=== PATIENT | male | born 1985 | race Caucasian/White ===

== ENCOUNTER 2016-09-08 16:55 | Observation (INO) | payer OTHER ==
[~2016-09-08] VITALS: Ht 177.8 cm; Wt 126.9 kg
[~2016-09-08 16:55] MED LIST: ASPI325T5 PO; ASPI81TA85 PO; CLEO300C2 PO; DOXY75CA3 PO; IBUP200C PO; LISI10TA4 PO; PAME10CA PO; PERCOCET PO; PRIL40CA PO; SENO8.6T9 PO; TYLE325T5 PO; ZANTAC PO
[2016-09-08 18:03] LABS: BASO # 0.1 K/mm3 (0.0-0.2); BASO % 1.2 % (0.0-1.0); EOS # 0.2 K/mm3 (0.0-0.50); LARGE UNSTAINED CELL # 0.2 K/mm3 (0.0-0.4); LARGE UNSTAINED CELL % 2.1 % (0.0-4.0); LYMPH # 2.6 K/mm3 (1.5-4.5); LYMPH % 32.8 % (24.0-44.0); MEAN CORPUSCULAR HEMOGLOBIN 31.9 pg (27.0-33.0); MEAN CORPUSCULAR HGB CONC 36.5 g/dl (32.0-36.5); MEAN CORPUSCULAR VOLUME 87.5 fl (80.0-96.0); MONO # 0.5 K/mm3 (0.0-0.8); MONO % 6.2 % (0.0-5.0); NEUTROPHILS # 4.1 K/mm3 (1.8-7.7); NEUTROPHILS % 54.8 % (36.0-66.0); PLATELET COUNT, AUTOMATED 184 k/mm3 (150-450); RED CELL DISTRIBUTION WIDTH 12.6 % (11.5-14.5); WHITE BLOOD COUNT 7.4 K/mm3 (4.0-10.0)
[2016-09-08 18:12] LABS: INR 0.94
[2016-09-08 18:23] LABS: ANION GAP 8 MEQ/L (8-16); BLOOD UREA NITROGEN 17 MG/DL (7-18); CARBON DIOXIDE LEVEL 27 MEQ/L (21-32); CHLORIDE LEVEL 104 MEQ/L (98-107); CREATININE FOR GFR 0.97 MG/DL (0.70-1.30); GLOMERULAR FILTRATION RATE > 60.0 (>60); GLUCOSE, FASTING 87 MG/DL (70-105); POTASSIUM SERUM 3.8 MEQ/L (3.5-5.1); SODIUM LEVEL 139 MEQ/L (136-145)
--- NOTE | 2016-09-08 18:48 | REP ---
CT brain without contrast 09/08/2016. Comparison: 04/22/2015, CT, MRI MRA brain, 09/12/2014 CT brain Clinical history CVA. Noncontrast images show ventricles midline and without dilatation or displacement. Basal ganglia are symmetric and normal. Ruggiero white right junction differentiation well maintained. No intracranial hemorrhage, vascular territory infarct, mass or mass effect. No extra-axial fluid collection seen. Brainstem was unremarkable. Cerebellum is unchanged by CT. Small lacunar infarct on MRI in April 2015 is not well reproduced by CT due to deep central location spray artifact. This is in the inferomedial left cerebellum on MRI. Regardless there is no posterior fossa hemorrhage or new finding. Basal cisterns intact. Mastoids sinuses, skull base and calvarium intact. Impression: 1. No evidence of an acute infarct, hemorrhage, mass, mass effect or edema , calvarium, mastoids and the visualized sinuses are clear. 2. The known small lacunar infarct in the cerebellum by MRI is not readily visible by CT. New in the cerebellum today. Signed by Valeriy Blount MD 09/08/2016 10:28 P
[2016-09-08] MEDS ORDERED: ISOVUE-370 76% 100ML VIAL (Q9967) As Ordered ONE (19:13)
[2016-09-08] MEDS ORDERED: LABETALOL HCL 100 MG/20 ML VIAL IV STA ×2 (19:41→21:36)
--- NOTE | 2016-09-08 21:20 | REPUSA ---
HISTORY: NECK PAIN R/O CAROTID DISSECTION TECHNIQUE: Multiple thin section helically-acquired, axially-displayed computed tomographic images of the neck were obtained from the aortic arch through the skull base following iodinated contrast infu lenora intravenously. 2D and 3D reconstructions were performed according to standard protocol at the re quest of the referring physician. Stenoses were measured according to NASCET criteria. Source images are reviewed. FINDINGS: There is normal anatomy. No flow restrictive stenoses. There is no evidence of carotid dissection. IMPRESSION: There is no evidence of carotid dissection. Thank you for your kind referral of this patient
[2016-09-08] MEDS ORDERED: LABETALOL 100 MG TAB PO ONE (21:45)
[2016-09-08] MEDS ORDERED: ACETAMINOPHEN TAB 650MG DOSE (2X325MG) PO PRN (22:45)
[2016-09-08] MEDS ORDERED: ONDANSETRON 4MG/2ML VIAL (J2405) IV PRN (22:45)
[2016-09-09] VITALS (7 sets, daily range): BP systolic 128–144; BP diastolic 81–96
--- NOTE | 2016-09-09 01:00 | REPUSA ---
CLINICAL HISTORY: Facial paresthesia. TECHNIQUE: Three dimensional qoni-gd-hoscni angiography is performed of the [place]. The romero dy was performed without IV contrast agent. FINDINGS: The supraclinoid portions of the internal carotid arteries are of normal shape. The normal bifurcation is seen. The middle cerebral arteries are unremarkable in appearance. The posterior circu lation is visualized and shows no evidence of occlusion or aneurysm formation. The basilar tip is see n and shows no aneurysm formation. There is no evidence of beading to suggest vasculitis. IMPRESSION: MRA of the [place] is within normal limits. Thank you for your kind referral of this patient.
--- NOTE | 2016-09-09 01:00 | REPUSA ---
CLINICAL HISTORY: History of facial paresthesia. TECHNIQUE: MRI of the brain was performed without administration of intravenous contrast material. T1 spine echo, T2 fast spin echo and FLAIR sequences were obtained in sagittal, axial and coronal plane s. FINDINGS: The sella and parasellar regions are unremarkable in appearance. The corpus callosum and cerebellar t onsils are of normal configuration and position. There are no intra or extra-axial collections. There is no mass effect or midline shift. There is no evidence of hematoma formation. There is no hydrocep halus. The brain stem shows no mass effects, infarcts or hemorrhage. There are no cerebellopontine tumors. T he acoustic nerves are symmetrical. No cerebellar intra-axial pathology delineated. The fourth ventri anaya and aqueduct are normal. No abnormalities of the optic nerves are identified. No dural or subdura l masses or collections are detected. The visualized arterial structures demonstrate normal appearing flow voids. The VII and VIII nerve bu ndles are visualized and are unremarkable in appearance. There are no suspicious signal abnormalities within the infra or supratentorial space. Minimal chronic mucosal inflammatory changes in the maxillary sinuses and ethmoid air cells. IMPRESSION: Minimal chronic mucosal inflammatory changes in the maxillary sinuses and ethmoid air cells. Normal MRI of the brain. No acute intracranial pathology. Thank you for your kind referral of this patient.
[2016-09-09] MEDS: HEPARIN SOD (PORCINE) 5000 UNITS/ML VIAL SC SCH ×2 (05:23→13:55)
[2016-09-09] MEDS: SLF 3 ML SYR IV SCH ×2 (05:44→13:54)
[2016-09-09] MEDS ORDERED: SLF 3 ML SYR IV PRN (05:45)
[2016-09-09 05:59] LABS: MEAN CORPUSCULAR HEMOGLOBIN 32.2 pg (27.0-33.0); MEAN CORPUSCULAR HGB CONC 36.2 g/dl (32.0-36.5); MEAN CORPUSCULAR VOLUME 88.8 fl (80.0-96.0); RED CELL DISTRIBUTION WIDTH 12.3 % (11.5-14.5)
[2016-09-09 06:15] LABS: ANION GAP 12 MEQ/L (8-16); BLOOD UREA NITROGEN 14 MG/DL (7-18); CALCIUM LEVEL 8.8 MG/DL (8.5-10.1); CARBON DIOXIDE LEVEL 23 MEQ/L (21-32); CHLORIDE LEVEL 107 MEQ/L (98-107); CREATININE FOR GFR 0.86 MG/DL (0.70-1.30); GLOMERULAR FILTRATION RATE > 60.0 (>60); GLUCOSE, FASTING 98 MG/DL (70-105); SODIUM LEVEL 142 MEQ/L (136-145)
[2016-09-09 08:35] LABS: CHOLESTEROL LEVEL 188 MG/DL (<200); TRIGLYCERIDES LEVEL 372 MG/DL (<150)
[2016-09-09] MEDS ORDERED: amLODIPine 5 MG TAB PO SCH (09:00)
[2016-09-09] MEDS ORDERED: DOCUSATE SODIUM 100 MG CAP PO SCH (09:00)
[2016-09-09] MEDS ORDERED: ASPIRIN 81 MG ENTERIC TAB PO SCH (09:00)
[2016-09-09] MEDS ORDERED: LISINOPRIL 10 MG TAB PO SCH (09:00)
--- NOTE | 2016-09-09 09:36 | REP ---
PA AND LATERAL CHEST: 09/08/2016. Comparison: portable chest 04/22/2015, 10/02/2014. Clinical history: Chest pain. Findings: Two-view show the lung cunha well inflated. There is no infiltrate, effusion, atelectasis or mass. Heart, mediastinal, and hilar contours grossly intact. Aorta normal for age. Airway intact. Bony thorax shows no compression deformity. Impression: 1. No acute cardiopulmonary change. Signed by Valeriy Blount MD 09/09/2016 08:06 A
--- NOTE | 2016-09-09 09:59 | ECGEPIP ---
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
[2016-09-09] MEDS ORDERED: LISI10TA4 PO (17:22)
[2016-09-09] MEDS ORDERED: AMLO5TAB2 PO (17:22)
[2016-09-09] MEDS ORDERED: MAPA325T3 PO (17:22)
--- NOTE | 2016-09-09 22:20 | DSES ---
DATE OF ADMISSION: 09/08/2016 DATE OF DISCHARGE: 09/09/2016 PRIMARY CARE PROVIDER: [facility] ([place]. NEUROLOGIST: Dr. Gordon. CONSULTANTS: Neurologist, Dr. Muniz. PROCEDURES: None. COMPLICATIONS: None. DISCHARGE DIAGNOSES: 1. Acute left neck pain with left facial numbness. 2. History of small acute left inferior cerebellar infarction in March,. 3. History of hypertension. HOSPITALIZATION COURSE: The patient is a 31-year-old male who presented to [facility] on 09/08/2016, with acute onset of left neck pain with left facial numbness. The patient had similar symptoms when he had a cerebellar infarction in 2013; therefore, the patient came to [facility] for further evaluation. After the patient arrived in the emergency room, the patient was found to have elevated blood pressure. Active blood pressure management was attempted in the emergency room. Per patient, the patient's symptoms showed continued improvement with better control of the blood pressure, and the patient was monitored on telemetry. MRI and MRA were performed which also came back negative, and neurology has been consulted assisting in patient's care. The patient was evaluated on 09/09/2016. The patient was determined to not have an acute transient ischemic attack (TIA)/stroke, and the patient was determined stable for discharge with recommendation to followup with primary care provider in 1-2 weeks, and the patient is recommended to followup with Dr. Gordon, his primary neurologist, in 2-3 weeks. If patient continues to have a recurrence of the neck pain, the patient can use [id number] pain medication for pain control. OBJECTIVE: VITAL SIGNS: Temperature is 98, pulse 70, respirations 14, blood pressure 136/92, pulse oximetry 97% on room air. LABORATORY DATA: WBC is six, hemoglobin 15.6, hematocrit 43.2, platelet count 153. Sodium 142, potassium 4.0, chloride 107, carbon dioxide 23, BUN 14, creatinine 0.86, GFR greater than 60, fasting glucose 96, calcium 8.8. Triglycerides 372, total cholesterol 188, LDL 78.6, HDL 35. PT 12.7, INR 0.94. IMAGING: CT of the head without contrast on 09/08/2016, showed no evidence of acute infarct, hemorrhage, mass, mass effect or edema. CT angiogram of the neck on 09/08/2016, showed no evidence of carotid dissection. Chest x-ray on 09/08/2016, showed acute cardiopulmonary changes. MRA of the brain without contrast on 09/08/2016, showed MRA of the [place] is within normal limits. MRI of the brain without contrast on 09/08/2016, showed minimal chronic mucosal inflammatory changes in the maxillary sinus and ethmoid air cells. Normal MRI of the brain. No acute intracranial pathology. DISCHARGE MEDICATIONS: - Tylenol 650 mg by mouth every four hours as needed - amlodipine 5 mg by mouth daily - lisinopril 10 mg by mouth daily - aspirin 81 mg by mouth daily DISCHARGE INSTRUCTIONS: Discontinue lines. Discharge home. Activity as tolerated. Low-salt diet as tolerated. The patient is [facility]. The patient is recommended to followup with Dr. Gordon, his primary neurologist, in 2-3 weeks. DISCHARGE CONDITION: Stable. DISCHARGE TIME: Greater than 30 minutes.
--- NOTE | 2016-09-10 10:33 | HPE ---
DATE OF ADMISSION: 09/09/2016 PRIMARY CARE PROVIDER: [facility] ([place]) NEUROLOGIST: Dr. Gordon which he saw three years CODE STATUS: Full code. CHIEF COMPLAINT: Left facial numbness, weakness, left neck pain and shoulder pain which started earlier today. HISTORY OF PRESENT ILLNESS: Mr. Meredith is a 31-year-old male patient at [facility] with known history of hypertension and prior stroke in 2013. 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 He had been doing well without any problems up until earlier this afternoon when he had sudden onset of left shoulder, neck pain, facial numbness and did end up with a headache' he calls a "migraine" although he did not have any photophobia or nausea or vomiting. He did take Advil, which did help out with the headache, neck pain did seem to improve but he continues to have trouble with some left-sided facial numbness. He was unclear about having experienced any chest pain. He said he did have some discomfort or tightness in the chest. No history of anxiety. He did not have any substernal chest pain. No paroxysmal nocturnal dyspnea (PND) or orthopnea, no palpitations and denies lower extremity edema. He informs me that he had been previously on blood pressure medication, but was unable to recall the medication or the dose. His blood pressure was elevated according to the emergency room (ER) physician. He did receive a one-time dose of metoprolol IV which did seem to help his blood pressure. He had a CT scan that was unremarkable. However, given his prior history of circumstance the emergency department (ED) physician did contact me for a overnight observation and for the patient to have an Magnetic Resonance Imaging (MRI) tonight and to be seen by neurology tomorrow morning which I felt that this was reasonable. PAST MEDICAL HISTORY INCLUDES: 1. Prior cerebrovascular accident (CVA) stroke in 2013. 2. Hypertension. PAST SURGICAL HISTORY: Unremarkable. PAST SURGICAL HISTORY: Appendectomy. FAMILY HISTORY: Noncontributory. SOCIAL HISTORY: The patient said he quit smoking about 14 years ago after being a half-pack a day smoker for 3 years. Denies alcohol use. No illicit drug use. No recent travel or sick contacts. CURRENT MEDICATIONS: We have only be able to confirm aspirin 81 mg daily ALLERGIES: To TAPE. REVIEW OF SYSTEMS: CONSTITUTIONAL: As outlined above in history of present illness with some left facial numbness, neck pain, headache, chest discomfort. All these symptoms seem to have resolved, except for the facial numbness. HEENT: He did previously have a headache which is resolved. He did state that he felt that he had some blurred vision temporarily that has resolved. He denies any difficulty with speech or swallow. PULMONARY: He denies productive sputum, cough or hemoptysis. CARDIOVASCULAR: He denies currently any substernal chest pain. No paroxysmal nocturnal dyspnea (PND) or orthopnea. No palpitations. No lower extremity edema. GASTROINTESTINAL (GI): No nausea, vomiting, diarrhea. Appetite is good. He denies constipation. He denies any hematochezia or melena. GENITOURINARY (): No dysuria, frequency or hematuria. MUSCULOSKELETAL: No bone loss or joint pain swelling, erythema. NEURO: No lateralizing symptoms other than some left facial numbness. He did not have any amaurosis fugax. stated that he felt that he had a migraine but he did not describe having photophobia. No nausea or vomiting. ENDOCRINE: Negative for diabetes. No thyroid disorder. LYMPHATICS: No lumps, bumps, swelling in neck or axilla or groin. No night sweats. No weight loss. HEMATOLOGY: No bleeding or bruising disorder. No venous thromboembolism. ONCOLOGY: No history of cancer. PSYCHIATRIC: History of depression or anxiety disorder. REVIEW OF SYSTEMS: 10-point review of systems complete pertinent positives are listed. PHYSICAL EXAMINATION: Temperature is 96.6, pulse 89, respiratory rate is 18 and unlabored, blood pressure (BP) 149/95 initially his systolic blood pressure was 176 and again he was given a one-time dose of IV metoprolol. HEENT: Unremarkable. Throat is clear. NECK: Supple. LUNGS: Clear. HEART: Regular rate and rhythm. ABDOMEN: Soft. EXTREMITIES: No edema or calf tenderness. NEURO: Computerized Mill Recorder strength is equal bilaterally, does not demonstrate any focal deficits. Cranial nerves II-XII grossly intact. No facial droop noted. Extraocular movement is intact. LABORATORY DATA AND DIAGNOSTICS: White count is 7.4, hemoglobin 16.0, hemoglobin, platelets are 184,000. Sodium is 139, potassium 3.8, chloride 104, bicarbonate 27, anion gap 8, BUN 17, creatinine 0.97, glucose is 87, INR 0.94. PT is 12.7, PTT is 29.7. Reviewing the chart in 2013 when he had his previous strokes, his JAKE, anticardiolipin tests were all negative. Lyme studies were negative at that time and prothrombin mutation genes were unremarkable. Echocardiogram done 03/27/2013. No detectable intracardiac source of embolic material, normal left ventricular (LV) size, wall thickness and wall motion. Normal left atrial size and Doppler assessment of left ventricular (LV) diastolic function. Normal right heart chambers and single Doppler sign of mild pulmonary hypertension noted on. All-in-all this was unremarkable. Chest x-ray this evening, PA and lateral shows no acute cardiopulmonary findings. CT angiogram of the cervical spine, no evidence of carotid dissection. Head CT shows no evidence of acute infarct, mass, hemorrhage or mass effect. No edema. Did have known small lacunar infarct in the cerebellum previously seen on Magnetic Resonance Imaging (MRI) not readily visible on CT scan, but no new cerebellar pathology noted. MRI is pending at this time. 12-lead electrocardiogram (EKG): Normal sinus rhythm. No acute ST-T wave abnormality, ventricular rate at 95 beats per minute. IMPRESSION: Mr. Meredith is a pleasant 31-year-old male who unfortunately has had some prior history of cerebrovascular accident (CVA) stroke in 2013. He does present this evening with having left facial paresthesias which has not resolved, previously did have left cervical, neck and shoulder pain with headaches; all of which has resolved Systolic blood pressure was elevated and receive a one-time dose of metoprolol and will need admitting observation overnight on telemetry and have neurology see him in the morning. PROBLEM LIST: 1. Left facial paresthesias. 2. Left cervical neck pain. 3. Headache which has resolved. 4. Hypertension. 5. Prior history of cerebrovascular accident (CVA) in 2014. PLAN: Will admit him PCU on telemetry overnight, check Magnetic Resonance Imaging (MRI), consult Dr. Muniz in the morning. Will hold off on any further work up until Dr. Muniz has a chance to take a look at him since his symptomatology does appear to be improving. Will have physical therapy, occupational therapy see him. He is to continue on his home medications including aspirin. I did receive an updated medication list which includes lisinopril 10 mg daily which will continue on that with Norvasc 5 mg with hold parameters. Deep vein thrombosis (DVT) prophylaxis with subcutaneous heparin. DISPOSITION: Anticipate that he will be ready for home discharge in less than 24 hours as long as his workup remain.
== END 2016-09-09 23:14 | disposition home or self-care (01) ==
LOC: M ED 16:55 → INTOOBSV 22:40 → M ED INP 22:40 → M PCU 09-09 14:31
PROVIDERS: ADMIT Hospitalist; ATTEND Internal Medicine
DX: M54.2 Cervicalgia (principal); R20.8 Other disturbances of skin sensation; I10 Essential (primary) hypertension; Z86.73 Personal history of transient ischemic attack (TIA), and cerebral infarction without residual deficits; Z79.82 Long term (current) use of aspirin; Z79.899 Other long term (current) drug therapy; Z87.891 Personal history of nicotine dependence
CPT/HCPCS: 36415; 70450; 70498; 70544; 70551; 71020; 80048; 80061; 82550; 82553; 84484; 85025; 85027; 85610; 85730; 86850; 86900; 86901; 93005; 93041; 94760; 96372; 96374; 96376; 99285; G0378; Q9967

== ENCOUNTER 2017-12-14 14:55 | Emergency (ER) | payer OTHER ==
[2017-12-14] MEDS: ASPIRIN 81 MG CHEW TABLET PO (16:21)
[2017-12-14] MEDS: NITROGLYCERIN 0.4 MG SUBL TABLET SL (16:22)
[2017-12-14 16:32] LABS: BASO # 0.1 10^3/uL (0.0-0.2); BASO % 0.7 % (0.0-1.0); EOS # 0.3 10^3/uL (0.0-0.50); EOS % 3.4 % (0.0-3.0); HEMATOCRIT 46.9 % (42.0-52.0); HEMOGLOBIN 16.6 g/dl (13.5-17.5); IMMATURE GRANULOCYTE % 0.5 % (0-3.0); LYMPH # 2.2 10^3/uL (1.5-4.5); LYMPH % 26.1 % (24.0-44.0); MEAN CORPUSCULAR HGB CONC 35.4 g/dl (32.0-36.5); MEAN CORPUSCULAR VOLUME 90.5 fl (80.0-96.0); MONO # 0.7 10^3/uL (0.0-0.8); MONO % 8.3 % (0.0-5.0); NEUTROPHILS # 5.1 10^3/uL (1.8-7.7); PLATELET COUNT, AUTOMATED 181 10^3/uL (150-450); RED BLOOD COUNT 5.18 10^6/uL (4.30-6.10); RED CELL DISTRIBUTION WIDTH 12.4 % (11.5-14.5); WHITE BLOOD COUNT 8.3 10^3/uL (4.0-10.0)
[2017-12-14 16:39] LABS: ALBUMIN 3.7 GM/DL (3.2-5.2); ALBUMIN/GLOBULIN RATIO 0.97 (1.00-1.93); ALKALINE PHOSPHATASE 108 U/L (45-117); ALT/SGPT 89 U/L (12-78); ANION GAP 8 MEQ/L (8-16); AST/SGOT 38 U/L (7-37); BILIRUBIN,DIRECT 0.2 MG/DL (0.0-0.2); BILIRUBIN,TOTAL 0.6 MG/DL (0.2-1.0); BLOOD UREA NITROGEN 13 MG/DL (7-18); CALCIUM LEVEL 8.6 MG/DL (8.5-10.1); CARBON DIOXIDE LEVEL 25 MEQ/L (21-32); CHLORIDE LEVEL 106 MEQ/L (98-107); CPK CREATINE PHOSPHOKINASE 346 U/L (39-308); CREATININE FOR GFR 0.85 MG/DL (0.70-1.30); GLOMERULAR FILTRATION RATE > 60.0 (>60); GLUCOSE, FASTING 84 MG/DL (70-100); MB/CK RELATIVE INDEX 0.98 (< OR =4); POTASSIUM SERUM 3.9 MEQ/L (3.5-5.1); SODIUM LEVEL 139 MEQ/L (136-145); TOTAL PROTEIN 7.5 GM/DL (6.4-8.2); TROPONIN I < 0.02 NG/ML (< 0.10)
[2017-12-14] MEDS: LABETALOL HCL 100 MG/20 ML VIAL IV (16:56)
[2017-12-14] MEDS: NS 1,000 ML IV ×2 (17:00→17:19)
[2017-12-14] MEDS: KETOROLAC 30 MG/ML VIAL (J1885) IV (17:12)
[2017-12-14] MEDS: diphenhydrAMINE INJ 50MG/ML VIAL (J1200) IV (17:12)
[2017-12-14] MEDS: METOCLOPRAMIDE INJ 10MG/2ML VIAL (J2765) IV (17:12)
[2017-12-14] MEDS: ACETAMINOPHEN 325 MG TAB PO (17:13)
== END 2017-12-14 18:47 | disposition home or self-care (01) ==
LOC: M ED 14:55
DX: I10 Essential (primary) hypertension (principal); R51 Headache; J32.9 Chronic sinusitis, unspecified; Z87.891 Personal history of nicotine dependence; Z91.048 Other nonmedicinal substance allergy status; Z79.899 Other long term (current) drug therapy; Z79.82 Long term (current) use of aspirin
CPT/HCPCS: J1200

== ENCOUNTER 2018-07-02 15:36 | Emergency (ER) | payer OTHER ==
[~2018-07-02] VITALS: Ht 177.8 cm; Wt 113.6 kg
[~2018-07-02 15:36] MED LIST changes: +AMLO5TAB6 PO; +MAPA325T3 PO; +METO50TA7 PO; +OXYC1TAB23 PO; -PERCOCET PO
[2018-07-02] MEDS ORDERED: KETOROLAC 30 MG/ML VIAL (J1885) IV ONE (19:30)
--- NOTE | 2018-07-02 19:41 | REP ---
Clinical: Possible stroke . Comparison: 09/08/2016, 12/14/2017 . Findings: The ventricles, sulci, and cisterns are normal in position and appearance. Ruggiero-white differentiation is maintained. No acute intracranial hemorrhage, mass/mass effect, pathology or trauma/injury. No evidence for acute infarction. No extra-axial fluid collection. Calvarium is intact. Paranasal sinuses and mastoid air cells are clear. Impression: Normal noncontrast head CT. No evidence for acute intracranial pathology or trauma/injury. Electronically Signed by Venkat Mantilla MD 07/02/2018 07:32 P
--- NOTE | 2018-07-02 20:09 | REP ---
Clinical: Acute chest pain . Comparison: 12/14/2017 . Technique: PA and lateral. Findings: The mediastinum and cardiac silhouette are normal. The lung cunha are clear and without acute consolidation, effusion, or pneumothorax. The skeletal structures are intact and normal. Impression: 1. No acute cardiopulmonary process. Electronically Signed by Venkat Mantilla MD 07/02/2018 08:00 P
[2018-07-02 20:11] LABS: BASO # 0.1 10^3/uL (0.0-0.2); BASO % 0.6 % (0.0-1.0); EOS # 0.2 10^3/uL (0.0-0.50); EOS % 2.2 % (0.0-3.0); HEMATOCRIT 48.2 % (42.0-52.0); LYMPH # 2.4 10^3/uL (1.5-4.5); LYMPH % 29.4 % (24.0-44.0); MEAN CORPUSCULAR HEMOGLOBIN 31.1 pg (27.0-33.0); MEAN CORPUSCULAR HGB CONC 35.3 g/dl (32.0-36.5); MEAN CORPUSCULAR VOLUME 88.3 fl (80.0-96.0); MONO # 0.5 10^3/uL (0.0-0.8); MONO % 6.4 % (0.0-5.0); NEUTROPHILS # 4.9 10^3/uL (1.8-7.7); NEUTROPHILS % 60.9 % (36.0-66.0); PLATELET COUNT, AUTOMATED 201 10^3/uL (150-450); RED BLOOD COUNT 5.46 10^6/uL (4.30-6.10); WHITE BLOOD COUNT 8.1 10^3/uL (4.0-10.0)
[2018-07-02 20:22] LABS: PARTIAL THROMBOPLASTIN TIME 34.7 SECONDS (25.4-37.6)
[2018-07-02 20:26] LABS: PROTHROMBIN TIME 13.3 SECONDS (12.1-14.4)
[2018-07-02 20:34] LABS: ALBUMIN 4.2 GM/DL (3.2-5.2); ALT/SGPT 93 U/L (12-78); BILIRUBIN,DIRECT 0.2 MG/DL (0.0-0.2); BILIRUBIN,TOTAL 0.7 MG/DL (0.2-1.0); BLOOD UREA NITROGEN 16 MG/DL (7-18); C REACTIVE PROTEIN QUANTITATIV 0.84 MG/DL (0.00-0.30); CALCIUM LEVEL 8.9 MG/DL (8.5-10.1); CARBON DIOXIDE LEVEL 26 MEQ/L (21-32); CHLORIDE LEVEL 104 MEQ/L (98-107); CPK CREATINE PHOSPHOKINASE 415 U/L (39-308); CREATININE FOR GFR 0.98 MG/DL (0.70-1.30); GLOMERULAR FILTRATION RATE > 60.0 (>60); GLUCOSE, FASTING 92 MG/DL (70-100); LIPASE 208 U/L (73-393); MB/CK RELATIVE INDEX 0.96 (< OR =4); NT-PRO BNP 35 PG/ML (<125); POTASSIUM SERUM 3.9 MEQ/L (3.5-5.1); SODIUM LEVEL 138 MEQ/L (136-145); TOTAL PROTEIN 8.4 GM/DL (6.4-8.2); TROPONIN I < 0.02 NG/ML (< 0.10)
[2018-07-02] MEDS ORDERED: NS 1,000 ML IV ONE (21:00)
--- NOTE | 2018-07-02 21:11 | ECGEPIP ---
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 Order Number: [id number] Reading MD: Vanesa Chew Measurements Intervals [place] Rate: 94 P: 48 AK: 142 QRS: QRSD: 113 T: QT: 348 QTc: 437 Interpretive Statements SINUS RHYTHM MODERATE INTRAVENTRICULAR CONDUCTION DELAY MODERATE VOLTAGE CRITERIA FOR LVH, CONSIDER NORMAL VARIANT NONSPECIFIC T-WAVE ABNORMALITY SIMILAR 12/14/17 Electronically Signed on 07-02-2018 21:11:14 EDT by Vanesa Chew
[2018-07-02 21:13] LABS: ERYTHROCYTE SEDIMENTATION RATE 9 mm/hr (0-15)
[2018-07-02] MEDS ORDERED: ISOVUE-370 76% 100ML VIAL (Q9967) As Ordered ONE (23:18)
--- NOTE | 2018-07-03 00:13 | REPVR ---
EXAM: CT Angiography Chest With Contrast EXAM DATE/TIME: 07/02/2018 10:53 PM CLINICAL HISTORY: 33 years old, male; Pain and signs and symptoms; Shortness of breath; Chest pain; Type not specified; Additional info: Cp/sob TECHNIQUE: Imaging protocol: Axial computed tomographic angiography images of the chest with intravenous contrast using CT angiography protocol. Coronal and sagittal reformatted images were created and reviewed. 3D rendering: MIP reconstructed images were created and reviewed. Radiation optimization: All CT scans at this facility use at least one of these dose optimization techniques: automated exposure control; mA and/or kV adjustment per patient size (includes targeted exams where dose is matched to clinical indication); or iterative reconstruction. Contrast material: ISO; Contrast volume: 75 ml; Contrast route: AC; COMPARISON: CR Chest, 2 view PA, Lat 07/02/2018 7:34 PM FINDINGS: Pulmonary arteries: There are no pulmonary emboli. Aorta: Fusiform dilatation of the ascending thoracic aorta measures 3.8 cm maximally. There is no aortic dissection or aneurysm. Lungs: Bilateral geographic lower lobe groundglass opacities likely represent atelectasis. Pleural space: Normal. No pneumothorax. No pleural effusion. Heart: Normal. No cardiomegaly. No pericardial effusion. Lymph nodes: Multiple small mediastinal lymph nodes likely postinflammatory. Bones/joints: Unremarkable. No acute fracture. Soft tissues: Unremarkable. IMPRESSION: 1. Bilateral geographic lower lobe groundglass opacities likely represent atelectasis. 2. Fusiform dilatation of the ascending thoracic aorta measures 3.8 cm maximally. 3. There is no aortic dissection or aneurysm. 4. There are no pulmonary emboli. Electronically signed by: William Garnica On 07/03/2018 00:13:16 AM
[2018-07-03 00:29] VITALS: BP 160/78
[2018-07-03] MEDS ORDERED: AZIT-10 PO (00:36)
[2018-07-03] MEDS ORDERED: PRED20TA PO (00:36)
--- NOTE | 2018-07-03 18:15 | ED PDOC ---
Post-Departure Follow-Up dr daly faxed formal report of cta chest for fu Amrita Malave MD July 03, 2018 18:15
== END 2018-07-03 00:48 | disposition home or self-care (01) ==
LOC: M ED 15:36
DX: I71.4 Abdominal aortic aneurysm, without rupture (principal); J40 Bronchitis, not specified as acute or chronic; I10 Essential (primary) hypertension; J45.909 Unspecified asthma, uncomplicated; K21.9 Gastro-esophageal reflux disease without esophagitis; E66.9 Obesity, unspecified; Z79.899 Other long term (current) drug therapy; Z79.82 Long term (current) use of aspirin; Z86.73 Personal history of transient ischemic attack (TIA), and cerebral infarction without residual deficits
CPT/HCPCS: 36415; 70450; 71046; 71275; 80048; 80076; 82550; 82553; 83690; 83880; 84484; 85025; 85610; 85652; 85730; 86140; 93005; 96361; 96374; 99284; J1885; Q9967

== ENCOUNTER 2019-02-06 02:33 | Emergency (ER) | payer OTHER ==
[~2019-02-06] VITALS: Ht 177.8 cm; Wt 138.9 kg
[~2019-02-06 02:33] MED LIST changes: +AZIT-10 PO; +PRED20TA PO
[2019-02-06 02:34] VITALS: BP 175/117
[2019-02-06 03:24] LABS: INFLUENZA A AMPLIFICATION NEGATIVE (NEGATIVE); INFLUENZA B AMPLIFICATION NEGATIVE (NEGATIVE)
[2019-02-06] MEDS ORDERED: PRED20TA PO (03:49)
[2019-02-06] MEDS ORDERED: TESS100C PO (03:49)
[2019-02-06] MEDS ORDERED: ALBUTEROL 90 MCG/ACT 8GM HFA INHALER INH ONE (04:00)
[2019-02-06] MEDS ORDERED: BENZONATATE 100 MG CAP PO ONE (04:00)
[2019-02-06] MEDS ORDERED: predniSONE 20 MG TAB PO ONE (04:00)
--- NOTE | 2019-02-06 07:07 | REP ---
Clinical: Cough . Comparison: 07/02/2018 . Technique: PA and lateral. Findings: The mediastinum and cardiac silhouette are normal. The lung cunha are clear and without acute consolidation, effusion, or pneumothorax. The skeletal structures are intact and normal. Impression: 1. No acute cardiopulmonary process. Electronically Signed by Venkat Mantilla MD 02/06/2019 06:58 A
== END 2019-02-06 04:08 | disposition home or self-care (01) ==
LOC: M ED 02:33
DX: J20.9 Acute bronchitis, unspecified (principal); B34.9 Viral infection, unspecified; I10 Essential (primary) hypertension; I51.9 Heart disease, unspecified; Z86.73 Personal history of transient ischemic attack (TIA), and cerebral infarction without residual deficits; Z82.49 Family history of ischemic heart disease and other diseases of the circulatory system; Z79.82 Long term (current) use of aspirin; Z79.899 Other long term (current) drug therapy; Z91.89 Other specified personal risk factors, not elsewhere classified

== ENCOUNTER → 2019-04-05 | Outpatient (REF) | payer OTHER ==
[~2019-04-05] MED LIST changes: +TESS100C PO
[2019-04-05 22:39] LABS: INFLUENZA A AMPLIFICATION NEGATIVE (NEGATIVE); INFLUENZA B AMPLIFICATION POSITIVE (NEGATIVE)
== END ==
LOC: M LAB REF 11:55
PROVIDERS: ATTEND Physician Assistant
DX: J11.1 Influenza due to unidentified influenza virus with other respiratory manifestations (principal)

== ENCOUNTER 2019-04-19 17:32 | Emergency (ER) | payer OTHER ==
[~2019-04-19] VITALS: Ht 177.8 cm; Wt 139.2 kg
[2019-04-19] MEDS ORDERED: LISI-538 PO (17:39)
[2019-04-19] MEDS ORDERED: AMOX875T PO (17:41)
[2019-04-19] MEDS ORDERED: ACETAMINOPHEN 325 MG TAB PO ONE (19:00)
[2019-04-19] MEDS ORDERED: lisinopriL 10 MG TAB PO ONE (19:00)
[2019-04-19 19:24] VITALS: BP 159/98
[2019-04-19 19:49] LABS: BASO # 0.1 10^3/uL (0.0-0.2); BASO % 0.9 % (0.0-1.0); EOS # 0.3 10^3/uL (0.0-0.5); HEMATOCRIT 47.3 % (42.0-52.0); HEMOGLOBIN 16.6 g/dl (13.5-17.5); LYMPH # 2.6 10^3/uL (1.5-5.0); LYMPH % 30.4 % (24.0-44.0); MEAN CORPUSCULAR HEMOGLOBIN 31.1 pg (27.0-33.0); MEAN CORPUSCULAR HGB CONC 35.1 g/dl (32.0-36.5); MEAN CORPUSCULAR VOLUME 88.6 fl (80.0-96.0); MONO # 0.6 10^3/uL (0.0-0.8); MONO % 7.5 % (0.0-5.0); NEUTROPHILS # 4.9 10^3/uL (1.5-8.5); NEUTROPHILS % 57.6 % (36.0-66.0); PLATELET COUNT, AUTOMATED 225 10^3/uL (150-450); RED BLOOD COUNT 5.34 10^6/uL (4.30-6.10); WHITE BLOOD COUNT 8.5 10^3/uL (4.0-10.0)
[2019-04-19 20:38] LABS: ALBUMIN 3.8 GM/DL (3.2-5.2); ALT/SGPT 73 U/L (12-78); BILIRUBIN,DIRECT 0.2 MG/DL (0.0-0.2); BILIRUBIN,TOTAL 0.6 MG/DL (0.2-1.0); BLOOD UREA NITROGEN 16 MG/DL (7-18); CARBON DIOXIDE LEVEL 25 MEQ/L (21-32); CHLORIDE LEVEL 106 MEQ/L (98-107); CK-MB VALUE MASS < 1.0 NG/ML (<3.6); CPK CREATINE PHOSPHOKINASE 207 U/L (39-308); CREATININE FOR GFR 0.97 MG/DL (0.70-1.30); GLOMERULAR FILTRATION RATE > 60.0 (>60); GLUCOSE, FASTING 76 MG/DL (70-100); LIPASE 174 U/L (73-393); MB/CK RELATIVE INDEX 0.48 (< OR =4); SODIUM LEVEL 138 MEQ/L (136-145); TOTAL PROTEIN 7.5 GM/DL (6.4-8.2); TROPONIN I < 0.02 NG/ML (< 0.10)
[2019-04-19 21:15] LABS: INFLUENZA A AMPLIFICATION NEGATIVE (NEGATIVE); INFLUENZA B AMPLIFICATION NEGATIVE (NEGATIVE)
--- NOTE | 2019-04-19 21:48 | ECGEPIP ---
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
[2019-04-19] MEDS ORDERED: ISOVUE-370 76% 100ML VIAL (Q9967) As Ordered ONE (22:24)
--- NOTE | 2019-04-19 23:16 | REPVR ---
PROCEDURE INFORMATION: Exam: CT Angiography Chest With Contrast Exam date and time: 04/19/2019 10:29 PM Age: 34 years old Clinical indication: Abnormal findings; Abnormal diagnostic tests; Elevated d-dimer; Shortness of breath; Additional info: SOB; Elevated d dimer; R/O pe TECHNIQUE: Imaging protocol: Computed tomographic angiography of the chest with intravenous contrast. 3D rendering: MIP and/or 3D reconstructed images were created by the technologist. Radiation optimization: All CT scans at this facility use at least one of these dose optimization techniques: automated exposure control; mA and/or kV adjustment per patient size (includes targeted exams where dose is matched to clinical indication); or iterative reconstruction. Contrast material: ISOVUE 370; Contrast volume: 75 ml; Contrast route: IV; COMPARISON: CT ANGIO CHEST 07/02/2018 11:14 PM FINDINGS: Pulmonary arteries: There is opacification of the pulmonary arteries with no evidence of pulmonary embolus. Aorta: There is mild ectasia of the ascending aorta unchanged. Thyroid: Normal thyroid. Lungs: There is mild to moderate hazy and patchy interstitial density throughout the lungs and new since the 07/02/2018. This could be patchy interstitial pneumonitis. Pleural space: There is a 1 cm oval pleural base nodule left apical portion of the lung and new since the examination of 07/02/2018. There is no evidence of pleural effusion. There is no evidence of pneumothorax. Heart: There is moderate cardiomegaly. Liver: There is moderate fatty infiltration of the liver. Lymph nodes: Unremarkable. No enlarged lymph nodes. Bones/joints: There is no evidence of bony abnormality. Soft tissues: Unremarkable. IMPRESSION: 1. There is moderate cardiomegaly. 2. There is a 1 cm nodule that is pleural based at the left apical portion of the lung and new since 2019. To exclude any possibility of pathologic nodule recommend follow-up CT scan in 5 months for re-evaluation and to document stability. 3. [id number] hazy patchy interstitial density throughout the lungs which could represent interstitial pneumonitis. This is new since 2019. Electronically signed by: Evin Espinoza On 04/19/2019 23:16:19 PM
[2019-04-20 00:45] VITALS: BP 145/81
--- NOTE | 2019-04-20 14:13 | REP ---
REASON: Chest pain. COMPARISON: Multiple, the latest 02/06/2019. CHEST PORTABLE: FINDINGS: The technique utilized in obtaining the radiograph has magnified the cardiac silhouette and accentuated the interstitial markings. The superior mediastinal structures are midline. The cardiac silhouette is unremarkable in size, shape, and position. The diaphragmatic surfaces of the lungs are regular, and the costophrenic angles are clear. The pulmonary cunha are clear. The imaged osseous structures are intact. IMPRESSION: There is no acute cardiopulmonary disease. No significant change from the prior exam other than technique. Unreviewed
--- NOTE | 2019-04-20 14:47 | ED PDOC ---
Post-Departure Follow-Up brooke daly faxed formal report of cta chest for fu Amrita Malave MD Apr 20, 2019 14:47
== END 2019-04-20 01:14 | disposition home or self-care (01) ==
LOC: M ED 17:32
DX: J12.9 Viral pneumonia, unspecified (principal); I45.19 Other right bundle-branch block; I51.7 Cardiomegaly; I10 Essential (primary) hypertension; K21.9 Gastro-esophageal reflux disease without esophagitis; Z86.73 Personal history of transient ischemic attack (TIA), and cerebral infarction without residual deficits; R91.1 Solitary pulmonary nodule; Z91.89 Other specified personal risk factors, not elsewhere classified; Z88.8 Allergy status to other drugs, medicaments and biological substances
CPT/HCPCS: 71045; 71275; 80048; 80076; 82550; 82553; 83690; 84443; 84484; 85025; 85379; 87502; 93005; 93041; 94760; 99285; Q9967

== ENCOUNTER 2019-04-22 18:29 | Emergency (ER) | payer OTHER ==
[~2019-04-22] VITALS: Ht 177.8 cm; Wt 141.3 kg
[~2019-04-22 18:29] MED LIST changes: +AMOX875T PO; +LISI-538 PO
[2019-04-22] MEDS ORDERED: BENZ-18 (18:37)
[2019-04-22] MEDS ORDERED: LISI10TA4 PO (18:49)
[2019-04-22 19:01] LABS: BASO # 0.1 10^3/uL (0.0-0.2); BASO % 0.9 % (0.0-1.0); EOS # 0.2 10^3/uL (0.0-0.5); EOS % 2.9 % (0.0-3.0); HEMATOCRIT 45.6 % (42.0-52.0); LYMPH # 2.6 10^3/uL (1.5-5.0); LYMPH % 34.1 % (24.0-44.0); MEAN CORPUSCULAR HEMOGLOBIN 30.5 pg (27.0-33.0); MEAN CORPUSCULAR HGB CONC 35.1 g/dl (32.0-36.5); MONO # 0.6 10^3/uL (0.0-0.8); MONO % 8.5 % (0.0-5.0); NEUTROPHILS % 53.3 % (36.0-66.0); PLATELET COUNT, AUTOMATED 247 10^3/uL (150-450); RED BLOOD COUNT 5.24 10^6/uL (4.30-6.10); WHITE BLOOD COUNT 7.5 10^3/uL (4.0-10.0)
[2019-04-22 19:22] LABS: BLOOD UREA NITROGEN 16 MG/DL (7-18); CALCIUM LEVEL 9.7 MG/DL (8.5-10.1); CARBON DIOXIDE LEVEL 25 MEQ/L (21-32); CHLORIDE LEVEL 107 MEQ/L (98-107); CK-MB VALUE MASS 1.3 NG/ML (<3.6); CPK CREATINE PHOSPHOKINASE 181 U/L (39-308); GLOMERULAR FILTRATION RATE > 60.0 (>60); GLUCOSE, FASTING 87 MG/DL (70-100); MB/CK RELATIVE INDEX 0.72 (< OR =4); SODIUM LEVEL 138 MEQ/L (136-145); TROPONIN I < 0.02 NG/ML (< 0.10)
--- NOTE | 2019-04-22 19:55 | REP ---
HISTORY: Chest pain. The technique utilized in obtaining the radiograph has magnified the cardiac silhouette and accentuated the interstitial markings. The superior mediastinal structures are midline. The cardiac silhouette is unremarkable in size, shape, and position. The diaphragmatic surfaces of the lungs are regular, and the costophrenic angles are clear. The pulmonary cunha are clear. The imaged osseous structures are intact. IMPRESSION: There is no acute cardiopulmonary disease. Electronically Signed by Michael Summers DO 04/23/2019 01:18 P
[2019-04-22] MEDS ORDERED: NS 1,000 ML IV ONE (20:00)
[2019-04-22] MEDS ORDERED: ISOVUE-370 76% 100ML VIAL (Q9967) As Ordered ONE (20:11)
--- NOTE | 2019-04-22 20:18 | ECGEPIP ---
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
[2019-04-22] MEDS: MORPHINE 2 MG/ML 1ML VIAL (J2270) IV PRN (20:34)
--- NOTE | 2019-04-22 20:52 | REPVR ---
PROCEDURE INFORMATION: Exam: CT Abdomen And Pelvis With Contrast Exam date and time: 04/22/2019 8:03 PM Age: 34 years old Clinical indication: Abdominal pain; Generalized; Additional info: Chest pain, luq pain TECHNIQUE: Imaging protocol: Computed tomography of the abdomen and pelvis with intravenous contrast. Radiation optimization: All CT scans at this facility use at least one of these dose optimization techniques: automated exposure control; mA and/or kV adjustment per patient size (includes targeted exams where dose is matched to clinical indication); or iterative reconstruction. Contrast material: ISOVUE 370; Contrast volume: 100 ml; Contrast route: IV; COMPARISON: No relevant prior studies available. FINDINGS: Liver: Diffuse hepatic steatosis. Gallbladder and bile ducts: Unremarkable. No ductal dilation. Pancreas: Unremarkable. No ductal dilation. Spleen: Unremarkable. Adrenals: Unremarkable. Kidneys and ureters: No hydronephrosis or stones. Stomach and bowel: Stomach is unremarkable. No small bowel obstruction. Large bowel is unremarkable. Appendix: No evidence of appendicitis. Intraperitoneal space: No pneumoperitoneum. No significant fluid collection. Vasculature: Unremarkable. Lymph nodes: No enlarged lymph nodes. Bladder: Unremarkable. Reproductive: Unremarkable as visualized. Bones/joints: No acute osseus lesion or fracture. Soft tissues: Small fat containing umbilical hernia. Small fat containing right inguinal hernia. IMPRESSION: 1. Diffuse hepatic steatosis. 2. Other chronic findings, as above. Electronically signed by: Shun Marmolejo On 04/22/2019 20:52:02 PM
--- NOTE | 2019-04-22 20:58 | REPVR ---
PROCEDURE INFORMATION: Exam: CT Angiography Chest With Contrast Exam date and time: 04/22/2019 8:03 PM Age: 34 years old Clinical indication: Chest pain; Additional info: Chest pain, luq pain TECHNIQUE: Imaging protocol: Computed tomographic angiography of the chest with intravenous contrast. 3D rendering: MIP and/or 3D reconstructed images were created by the technologist. Radiation optimization: All CT scans at this facility use at least one of these dose optimization techniques: automated exposure control; mA and/or kV adjustment per patient size (includes targeted exams where dose is matched to clinical indication); or iterative reconstruction. Contrast material: ISOVUE 370; Contrast volume: 100 ml; Contrast route: IV; COMPARISON: CT ANGIO CHEST 04/19/2019 10:27 PM FINDINGS: Pulmonary arteries: Subsegmental pulmonary arteries could not be assessed. No filling defect in the main, lobar, and segmental pulmonary arterial branches. Aorta: No aortic aneurysm. No evidence of dissection. Lungs: Mild bibasilar dependent atelectasis of the lower lobes. Redemonstration of 0.9 cm subpleural nodule in the left lung apex. No new nodules. Pleural space: No pleural effusion or pneumothorax. Heart: Unremarkable. No pericardial effusion. Lymph nodes: No enlarged lymph nodes. Bones/joints: No acute osseus lesion or fracture. Soft tissues: Unremarkable. IMPRESSION: 1. No evidence of pulmonary embolism in large caliber pulmonary arteries. Small caliber pulmonary arteries could not be assessed. 2. Redemonstration of 0.8 cm subpleural nodule in the left lung apex. For both low risk and high risk patients, consider CT at 3 months, PET/CT or biopsy. (aria Anaya al., Fleischner Society, 2017). Electronically signed by: Shun Marmolejo On 04/22/2019 20:58:15 PM
[2019-04-22 21:07] LABS: ALBUMIN 3.9 GM/DL (3.2-5.2); ALT/SGPT 88 U/L (12-78); BILIRUBIN,DIRECT 0.1 MG/DL (0.0-0.2); BILIRUBIN,TOTAL 0.5 MG/DL (0.2-1.0); LIPASE 235 U/L (73-393); TOTAL PROTEIN 7.5 GM/DL (6.4-8.2)
[2019-04-22] MEDS ORDERED: GI COCKTAIL 50ML BTL(HYOSCYAMINE/MAALOX/LIDOCAINE VISCOUS)(1:3:1) PO ONE (21:30)
[2019-04-22] MEDS ORDERED: KETOROLAC 30 MG/ML VIAL (J1885) IV ONE (21:30)
[2019-04-22 23:36] LABS: CK-MB VALUE MASS < 1.0 NG/ML (<3.6); CPK CREATINE PHOSPHOKINASE 151 U/L (39-308); MB/CK RELATIVE INDEX 0.66 (< OR =4); TROPONIN I < 0.02 NG/ML (< 0.10)
[2019-04-23] MEDS: MORPHINE 2 MG/ML 1ML VIAL (J2270) IV PRN (00:02)
[2019-04-23] MEDS ORDERED: KETO10TAB PO (00:04)
[2019-04-23 00:17] VITALS: BP 144/84
--- NOTE | 2019-04-23 12:18 | ECGEPIP ---
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
--- NOTE | 2019-04-24 14:09 | ED PDOC ---
Post-Departure Follow-Up brooke daly faxed formal report of cta chest for fu Amrita Malave MD Apr 24, 2019 14:09
== END 2019-04-23 00:25 | disposition home or self-care (01) ==
LOC: M ED 18:29
DX: R09.1 Pleurisy (principal); R07.89 Other chest pain; K76.0 Fatty (change of) liver, not elsewhere classified; R91.1 Solitary pulmonary nodule; K21.9 Gastro-esophageal reflux disease without esophagitis; I45.19 Other right bundle-branch block; I10 Essential (primary) hypertension; Z86.73 Personal history of transient ischemic attack (TIA), and cerebral infarction without residual deficits; Z79.899 Other long term (current) drug therapy; Z91.89 Other specified personal risk factors, not elsewhere classified
CPT/HCPCS: 36415; 71045; 71275; 74177; 80048; 80076; 82550; 82553; 83690; 84484; 85025; 93005; 93041; 94760; 96361; 96374; 96375; 96376; 99285; J1885; J2270; Q9967

== ENCOUNTER → 2019-04-26 | Outpatient (CLI) | payer OTHER ==
[~2019-04-26] MED LIST changes: +BENZ-18; +KETO10TAB PO
== END ==
LOC: M LABSMTC 10:46
PROVIDERS: ATTEND Family Medicine
DX: Z11.59 Encounter for screening for other viral diseases (principal); Z20.828 Contact with and (suspected) exposure to other viral communicable diseases
CPT/HCPCS: 87486; 87581; 87633; 87798; U0002

== ENCOUNTER 2019-11-21 17:47 | Observation (INO) | payer OTHER ==
[~2019-11-21] VITALS: Ht 177.8 cm; Wt 149.8 kg
[~2019-11-21 17:47] MED LIST changes: +ACET325T42 PO; +AMLO1TAB24 PO; -AMLO5TAB6 PO; -ASPI81TA85 PO; +ASPI81TA86 PO; -MAPA325T3 PO
[2019-11-21] MEDS ORDERED: LISI40TA PO (18:06)
[2019-11-21] MEDS ORDERED: METO1TAB7 PO (18:06)
--- NOTE | 2019-11-21 18:20 | REPVR ---
PROCEDURE INFORMATION: Exam: CT Head Without Contrast Exam date and time: 11/21/2019 6:03 PM Age: 34 years old Clinical indication: Other: Facial numbness TECHNIQUE: Imaging protocol: Computed tomography of the head without contrast. Axial and coronal reformatted images were created and reviewed. Radiation optimization: All CT scans at this facility use at least one of these dose optimization techniques: automated exposure control; mA and/or kV adjustment per patient size (includes targeted exams where dose is matched to clinical indication); or iterative reconstruction. COMPARISON: CT Head without contrast 07/02/2018 7:19 PM FINDINGS: Brain: No CT evidence of acute intracranial hemorrhage or acute territorial infarction. No significant mass effect or midline shift. Basal cisterns patent. Cerebral ventricles: Normal in size and configuration. Bones/joints: No acute osseous abnormality. Paranasal sinuses: Unremarkable. No fluid levels. Mastoid air cells: Grossly unremarkable. Soft tissues: Grossly unremarkable. IMPRESSION: No CT evidence of acute intracranial pathology. Electronically signed by: Yobany Gutierrez On 11/21/2019 18:20:05 PM
[2019-11-21] MEDS ORDERED: ISOVUE-370 76% 100ML VIAL As Ordered ONE (18:48)
[2019-11-21 18:58] LABS: BASO # 0.1 10^3/uL (0.0-0.2); BASO % 0.9 % (0.0-1.0); EOS # 0.3 10^3/uL (0.0-0.5); EOS % 3.9 % (0.0-3.0); HEMATOCRIT 47.6 % (42.0-52.0); HEMOGLOBIN 15.9 g/dl (13.5-17.5); LYMPH # 2.4 10^3/uL (1.5-5.0); LYMPH % 31.9 % (24.0-44.0); MEAN CORPUSCULAR HEMOGLOBIN 29.6 pg (27.0-33.0); MEAN CORPUSCULAR HGB CONC 33.4 g/dl (32.0-36.5); MEAN CORPUSCULAR VOLUME 88.6 fl (80.0-96.0); MONO # 0.5 10^3/uL (0.0-0.8); MONO % 6.8 % (0.0-5.0); NEUTROPHILS # 4.2 10^3/uL (1.5-8.5); NEUTROPHILS % 56.2 % (36.0-66.0); PLATELET COUNT, AUTOMATED 195 10^3/uL (150-450); RED BLOOD COUNT 5.37 10^6/uL (4.30-6.10); WHITE BLOOD COUNT 7.5 10^3/uL (4.0-10.0)
[2019-11-21 19:30] LABS: ALBUMIN 4.1 GM/DL (3.2-5.2); ALT/SGPT 74 U/L (12-78); BILIRUBIN,DIRECT 0.2 MG/DL (0.0-0.2); BILIRUBIN,TOTAL 0.6 MG/DL (0.2-1.0); BLOOD UREA NITROGEN 16 MG/DL (7-18); CALCIUM LEVEL 8.8 MG/DL (8.5-10.1); CARBON DIOXIDE LEVEL 30 MEQ/L (21-32); CHLORIDE LEVEL 103 MEQ/L (98-107); CREATININE FOR GFR 0.97 MG/DL (0.70-1.30); GLOMERULAR FILTRATION RATE > 60.0 (>60); GLUCOSE, FASTING 83 MG/DL (70-100); POTASSIUM SERUM 3.9 MEQ/L (3.5-5.1); SODIUM LEVEL 137 MEQ/L (136-145); TOTAL PROTEIN 7.4 GM/DL (6.4-8.2)
--- NOTE | 2019-11-21 19:30 | REPVR ---
PROCEDURE INFORMATION: Exam: CT Angiography Head With Contrast Exam date and time: 11/21/2019 7:07 PM Age: 34 years old Clinical indication: Weakness; Additional info: Left arm weakness TECHNIQUE: Imaging protocol: Computed tomography angiography of the head with intravenous contrast. Axial, coronal and sagittal reformatted images were created and reviewed. 3D rendering (Not supervised by radiologist): MIP and/or 3D reconstructed images were created by the technologist. Radiation optimization: All CT scans at this facility use at least one of these dose optimization techniques: automated exposure control; mA and/or kV adjustment per patient size (includes targeted exams where dose is matched to clinical indication); or iterative reconstruction. Contrast material: ISOVUE 370; Contrast volume: 100 ml; Contrast route: INTRAVENOUS (IV); COMPARISON: CT Head without contrast 11/21/2019 5:59 PM FINDINGS: ANTERIOR CIRCULATION: Right internal carotid artery: Unremarkable. Intracranial segment is patent with no significant stenosis. No aneurysm. Right middle cerebral artery: Unremarkable. No occlusion or significant stenosis. No aneurysm. Right anterior cerebral artery: Unremarkable. No occlusion or significant stenosis. No aneurysm. Left internal carotid artery: Unremarkable. Intracranial segment is patent with no significant stenosis. No aneurysm. Left middle cerebral artery: Unremarkable. No occlusion or significant stenosis. No aneurysm. Left anterior cerebral artery: Unremarkable. No occlusion or significant stenosis. No aneurysm. POSTERIOR CIRCULATION: Right vertebral artery: Unremarkable. No occlusion or significant stenosis. No aneurysm. Left vertebral artery: Unremarkable. No occlusion or significant stenosis. No aneurysm. Basilar artery: Unremarkable. No occlusion or significant stenosis. No aneurysm. Right posterior cerebral artery: Unremarkable. No occlusion or significant stenosis. No aneurysm. Left posterior cerebral artery: Unremarkable. No occlusion or significant stenosis. No aneurysm. Brain: No definite mass, mass effect, or midline shift. Cerebral ventricles: Normal. No ventriculomegaly. Bones/joints: Unremarkable. No acute fracture. Soft tissues: Unremarkable. IMPRESSION: No large vessel stenosis or occlusion. Electronically signed by: Yobany Gutierrez On 11/21/2019 19:30:02 PM
--- NOTE | 2019-11-21 19:33 | REPVR ---
PROCEDURE INFORMATION: Exam: CT Angiography Neck With Contrast Exam date and time: 11/21/2019 7:07 PM Age: 34 years old Clinical indication: Weakness; Additional info: Left arm weakness TECHNIQUE: Imaging protocol: Computed tomography angiography of the neck with intravenous contrast. Axial, coronal and sagittal reformatted images were created and reviewed. 3D rendering (Not supervised by radiologist): MIP and/or 3D reconstructed images were created by the technologist. Radiation optimization: All CT scans at this facility use at least one of these dose optimization techniques: automated exposure control; mA and/or kV adjustment per patient size (includes targeted exams where dose is matched to clinical indication); or iterative reconstruction. Contrast material: ISOVUE 370; Contrast volume: 75 ml; Contrast route: INTRAVENOUS (IV); COMPARISON: CT ANGIO NECK 09/08/2016 7:49 PM FINDINGS: Right common carotid artery: No stenosis. No dissection or occlusion. Right internal carotid artery: Normal. Extracranial segment patent with no significant stenosis. No dissection or occlusion. Right external carotid artery: No occlusion or stenosis of the origin. Right vertebral artery: No stenosis. No dissection or occlusion. Left common carotid artery: No stenosis. No dissection or occlusion. Left internal carotid artery: Normal. Extracranial segment patent with no significant stenosis. No dissection or occlusion. Left external carotid artery: No occlusion or stenosis of the origin. Left vertebral artery: No stenosis. No dissection or occlusion. Bones/joints: No acute osseous abnormality. Soft tissues: Unremarkable. IMPRESSION: No stenosis or occlusion. REFERENCES: NASCET CRITERIA. The degree of internal carotid artery stenosis is based on NASCET criteria. Normal is no stenosis. Mild is less than 50% stenosis. Moderate is 50-69% stenosis. Severe is 70% to 99% stenosis. Total occlusion is no detectable patent lumen. Electronically signed by: Yobany Gutierrez On 11/21/2019 19:33:34 PM
--- NOTE | 2019-11-21 19:58 | REPVR ---
PROCEDURE INFORMATION: Exam: MR Angiogram Head Without Contrast, Arteries Exam date and time: 11/21/2019 7:46 PM Age: 34 years old Clinical indication: Patient HX: Left arm weakness/left sided neck pain, HX CVA no access to priors TECHNIQUE: Imaging protocol: MR angiogram head without contrast. Exam focused on the arteries. 3D rendering (Not supervised by radiologist): MIP and/or 3D reconstructed images were created by the technologist. COMPARISON: CT ANGIO HEAD 11/21/2019 6:52 PM FINDINGS: ANTERIOR CIRCULATION: Right internal carotid artery: Intracranial segment is patent with no significant stenosis. No aneurysm. Right middle cerebral artery: No occlusion or significant stenosis. No aneurysm. Right anterior cerebral artery: No occlusion or significant stenosis. No aneurysm. Left internal carotid artery: Intracranial segment is patent with no significant stenosis. No aneurysm. Left middle cerebral artery: No occlusion or significant stenosis. No aneurysm. Left anterior cerebral artery: No occlusion or significant stenosis. No aneurysm. POSTERIOR CIRCULATION: Right vertebral artery: No occlusion or significant stenosis. No aneurysm. Left vertebral artery: No occlusion or significant stenosis. No aneurysm. Basilar artery: No occlusion or significant stenosis. No aneurysm. Right posterior cerebral artery: No occlusion or significant stenosis. No aneurysm. Left posterior cerebral artery: No occlusion or significant stenosis. No aneurysm. IMPRESSION: No stenosis or occlusion. Electronically signed by: Yobany Gutierrez On 11/21/2019 19:58:28 PM
--- NOTE | 2019-11-21 20:00 | REPVR ---
PROCEDURE INFORMATION: Exam: MR Head Without Contrast Exam date and time: 11/21/2019 7:46 PM Age: 34 years old Clinical indication: Weakness, extremity; Bilateral; Patient HX: Left arm weakness/left sided neck pain, HX CVA no access to priors TECHNIQUE: Imaging protocol: MR of the head without contrast. COMPARISON: CT Head without contrast 11/21/2019 5:59 PM FINDINGS: Brain: Normal. No acute infarct. No hemorrhage. No significant white matter disease. No edema. Cerebral ventricles: Normal. No ventriculomegaly. Bones/joints: Unremarkable. Paranasal sinuses: Normal as visualized. No acute sinusitis. Mastoid air cells: Normal as visualized. No mastoid effusion. Orbits: Unremarkable. Soft tissues: Unremarkable. IMPRESSION: Unremarkable examination. Electronically signed by: Yobany Gutierrez On 11/21/2019 20:00:31 PM
--- NOTE | 2019-11-21 20:18 | REPVR ---
PROCEDURE INFORMATION: Exam: MR Angiography Neck Without Contrast Exam date and time: 11/21/2019 8:01 PM Age: 34 years old Clinical indication: Patient HX: Left arm weakness/left sided neck pain, HX CVA no access to priors TECHNIQUE: Imaging protocol: Magnetic resonance angiography of the neck without contrast. 3D rendering (Not supervised by radiologist): MIP and/or 3D reconstructed images were created by the technologist. COMPARISON: CT ANGIO NECK 11/21/2019 6:52 PM FINDINGS: Right common carotid artery: No stenosis. No dissection or occlusion. Right internal carotid artery: No stenosis of the extracranial segment. No dissection or occlusion. Right external carotid artery: No stenosis. No dissection or occlusion of the origin. Right vertebral artery: No stenosis. No dissection or occlusion. Left common carotid artery: No stenosis. No dissection or occlusion. Left internal carotid artery: No stenosis of the extracranial segment. No dissection or occlusion. Left external carotid artery: No stenosis. No dissection or occlusion of the origin. Left vertebral artery: No stenosis. No dissection or occlusion. IMPRESSION: No stenosis or occlusion. REFERENCES: NASCET CRITERIA. The degree of internal carotid artery stenosis is based on NASCET criteria. Normal is no stenosis. Mild is less than 50% stenosis. Moderate is 50-69% stenosis. Severe is 70% to 99% stenosis. Total occlusion is no detectable patent lumen. Electronically signed by: Yobany Gutierrez On 11/21/2019 20:18:22 PM
[2019-11-21] MEDS ORDERED: METOPROLOL 5 MG/5 ML VIAL IV STA (20:55)
[2019-11-21] MEDS ORDERED: METOPROLOL SUCC (TopROL XL) 50MG **XL** TAB PO ONE (21:00)
[2019-11-21] MEDS ORDERED: METOPROLOL SUCC (TopROL XL) 50MG **XL** TAB PO SCH (21:00)
[2019-11-21 21:12] VITALS: BP 170/109
--- NOTE | 2019-11-21 21:43 | HPEPDOC ---
General Date of Admission Date of Service: Nov 21, 2019 Attending Physician: CHALINO TREVIZO DO Chief Complaint The patient is a 34-year-old male admitted with a reason for visit of Arm Numbness. History of Present Illness 34 y/o male who presents to [facility] ER for cc of L arm and face numbness that started when he woke up this morning that has now resolved. He states that he does not recall how long the numbness in his face lasted and estimates a few hours. He states the numbness started in his face on the L side and then the numbness started in his L arm starting from his hand extending to the elbow. He says the numbness is mostly in the fourth and fifth fingers. He has had a CVA back in 2013 and states that the numbness in face and arms feel different than that. He denies any vision changes, CP, sob, abd pain, fever, chills, n/v/d. He did have a persistent headache which has now gone away. All imaging in ER is wnl. PAST MEDICAL HISTORY INCLUDES: 1. Prior cerebrovascular accident (CVA) stroke in 2013. 2. Hypertension. PAST SURGICAL HISTORY: Unremarkable. PAST SURGICAL HISTORY: Appendectomy. FAMILY HISTORY: Noncontributory. SOCIAL HISTORY: The patient said he quit smoking about 14 years ago after being a half-pack a day smoker for 3 years. Denies alcohol use. No illicit drug use. No recent travel or sick contacts. CURRENT MEDICATIONS: SEE BELOW ALLERGIES: SEE BELOW IMAGING: MR Angiogram Head Without Contrast, Arteries IMPRESSION: No stenosis or occlusion MR Angiography Neck Without Contrast IMPRESSION: No stenosis or occlusion. CT Angiography Head With Contrast IMPRESSION: No large vessel stenosis or occlusion. CT Angiography Neck With Contrast IMPRESSION: No stenosis or occlusion CT Head Without Contrast IMPRESSION: No CT evidence of acute intracranial pathology. Home Medications Scheduled Aspirin (Aspirin EC) 81 Mg Tablet.dr, 81 MG PO DAILY, (Reported) Lisinopril (Lisinopril) 40 Mg Tablet, 40 MG PO DAILY, (Reported) Metoprolol Succinate (Metoprolol Succinate) 50 Mg Tab.er.24h, 50 MG PO QHS, (Reported) Allergies Coded Allergies: TAPE (Verified Allergy, Unknown, WHITE MEDICAL TAPE, 04/22/19) A-FIB/CHADSVASC A-FIB History Current/History of A-Fib/PAF?: No Current PO Anticoag Therapy: No Review of Systems Constitutional: Denies: Chills, Fever, Malaise Eyes: Denies: Pain, Vision change ENT: Reports: Head Aches (still mild headache but much improved from this am); Denies: Dysphagia, Sinus Congestion, Post Nasal Drip Skin: Denies: Rash, Lesions Pulmonary: Denies: Dyspnea, Cough, Pleuritic Chest Pain Cardiovascular: Denies: Chest Pain, Palpitations, Orthopnea, Paroxysmal Noc. Dyspnea Gastrointestinal: Denies: Nausea, Vomiting, Abdominal Pain Genitourinary: Denies: Dysuria, Frequency, Incontinence Endocrine: Denies: Polydipsia, Polyphagia Musculoskeletal: Reports: Arm Pain (L arm numbness ); Denies: Shoulder Pain Neurological: Reports: Weakness, Numbness; Denies: Incoordination Psych: Reports: Mood Normal; Denies: Anxiety, Depression Physical Examination General Exam: Positive: Alert, Cooperative, No Acute Distress Eye Exam: Positive: PERRLA, EOMI ENT Exam: Positive: Atraumatic, Mucous membr. moist/pink, Pharynx Normal, Tongue Midline Neck Exam: Positive: Supple; Negative: JVD, thyromegaly, Lymphadenopathy Chest Exam: Positive: Clear to auscultation, Normal air movement; Negative: Rales, Rhonchi, Wheezing, Diminished Heart Exam: Positive: Rate Normal Telemetry: Positive: Sinus Abdomen Exam: Positive: Normal bowel sounds, Soft, Tenderness; Negative: Hepatospenomegaly, Mass, Hernia Extremity Exam: Negative: Clubbing, Cyanosis, Edema Skin Exam: Negative: Nl turgor and temperature, Breakdown Neuro Exam: Positive: Normal Speech, Strength at 5/5 X4 ext, Sensation Intact, Cranial Nerves 3-12 NL Psych Exam: Positive: Mental status NL; Negative: Anxiety Vital Signs Vital Signs Date Time Temp Pulse Resp B/P (MAP) Pulse Ox O2 Delivery O2 Flow Rate FiO2 11/21/19 21:32 79 94 11/21/19 21:30 149/101 (117) 11/21/19 17:48 97.8 16 Room Air Laboratory Data Labs 24H Laboratory Tests 2 11/21/19 18:45: Immature Granulocyte % (Auto) 0.3, Neutrophils (%) (Auto) 56.2, Lymphocytes (%) (Auto) 31.9, Monocytes (%) (Auto) 6.8H, Eosinophils (%) (Auto) 3.9H, Basophils (%) (Auto) 0.9, Neutrophils # (Auto) 4.2, Lymphocytes # (Auto) 2.4, Monocytes # (Auto) 0.5, Eosinophils # (Auto) 0.3, Basophils # (Auto) 0.1, Nucleated Red Blood Cells % (auto) 0.0, Anion Gap 4L, Glomerular Filtration Rate > 60.0, Calcium Level 8.8, Total Bilirubin 0.6, Direct Bilirubin 0.2, Aspartate Amino Transf (AST/SGOT) 31, Alanine Aminotransferase (ALT/SGPT) 74, Alkaline Phosphatase 104, Total Protein 7.4, Albumin 4.1, Albumin/Globulin Ratio 1.2, Thyroid Stimulating Hormone (TSH) 3.020 11/21/19 18:47: POC Glucose (Misc Panel) 87, POC Sodium (Misc Panel) 139, POC Potassium (Misc Panel) 3.7, POC Chloride (Misc Panel) 99, POC Total CO2 (Misc Panel) 25.0, POC Blood Urea Nitrogen (Misc Panel 18, POC Ionized Calcium (Misc Panel) 5.0, POC Creatinine (Misc Panel) 0.9, POC Hematocrit (Misc Panel) 48.0 CBC/BMP Laboratory Tests 11/21/19 18:45 Assessment/Plan a pleasant 31-year-old male who unfortunately has had some prior history of cerebrovascular accident (CVA) stroke in 2013. He presents with L facial numbness this am and L arm numbness, all of which have currently mostly resolved when examined in the ER. He still reports some numbness in his fourth and fifth fingers that radiates to the elbow on the L side. All imaging in ER are wnl. He'll be admitted for further mgmt and TIA workup and am consult with neurology. Plan / VTE VTE Prophylaxis Ordered?: Yes Plan Plan #L facial numbness and L forearm numbness - r/o TIA - ABCDD score 5 points moderate risk and 9.8% of 90 day stroke risk - consider consulting neurology by the am team - Pt has other high risk factors for stroke: obesity, HTN - prior medical records report negative for antiphospholipids - recommend outpt sleep study to r/o DIYA - pt has hx of CVA in 2014 - lipid panel ordered - cardiac panel ordered - all imaging has been wnl in ER - continue ASA - neurochecks q4h - PT/OT #HTN - continue metoprolol - continue lisinopril #Headache -tylenol 650mg PO q6h PRN for pain DVT ppx: heparin GI ppx: none IVF: none. encourage PO Diet: 2g Na Code: full GME ATTESTATION GME ATTESTATION My faculty preceptor for this patient encounter was physically present during e encounter and was fully available. All aspects of the patient interview, examination, medical decision making process, and medical care plan development were reviewed and approved by the faculty preceptor. The faculty preceptor is aware and concurs with the plan as stated in the body of this note and will attest to such by his/her cosignature. Cammie Cordova DO Nov 21, 2019 21:43
[2019-11-21 22:09] LABS: CHOLESTEROL LEVEL 192 MG/DL (<200); CHOLESTEROL RISK RATIO 4.085 (<5); CK-MB VALUE MASS 2.3 NG/ML (<3.6); CPK CREATINE PHOSPHOKINASE 211 U/L (39-308); HDL CHOLESTEROL 47 MG/DL (>40); LDL CHOLESTEROL 116 MG/DL (<100); MB/CK RELATIVE INDEX 1.09 (< OR =4); NON-HDL-C 145 MG/DL; TRIGLYCERIDES LEVEL 147 MG/DL (<150); TROPONIN I < 0.02 NG/ML (< 0.10)
[2019-11-21] MEDS ORDERED: ASPIRIN 81 MG CHEW TABLET PO ONE ×2 (22:15→23:00)
[2019-11-22 00:18] VITALS: BP 140/88
[2019-11-22] MEDS ORDERED: ACETAMINOPHEN TAB 650MG DOSE (2X325MG) PO PRN (00:45)
[2019-11-22] MEDS ORDERED: ASPI81TA27 PO (00:56)
[2019-11-22 02:00] VITALS: BP 113/77
[2019-11-22 06:00] VITALS: BP 119/81
[2019-11-22] MEDS ORDERED: HEPARIN SOD (PORCINE) 5000UNITS/ML 1ML VIAL/SYRINGE SC SCH (06:00)
[2019-11-22 07:10] LABS: HEMATOCRIT 46.7 % (42.0-52.0); HEMOGLOBIN 15.8 g/dl (13.5-17.5); MEAN CORPUSCULAR HEMOGLOBIN 30.4 pg (27.0-33.0); MEAN CORPUSCULAR HGB CONC 33.8 g/dl (32.0-36.5); MEAN CORPUSCULAR VOLUME 89.8 fl (80.0-96.0); PLATELET COUNT, AUTOMATED 183 10^3/uL (150-450); WHITE BLOOD COUNT 7.3 10^3/uL (4.0-10.0)
[2019-11-22 07:15] LABS: BLOOD UREA NITROGEN 16 MG/DL (7-18); CALCIUM LEVEL 8.5 MG/DL (8.5-10.1); CARBON DIOXIDE LEVEL 25 MEQ/L (21-32); CHLORIDE LEVEL 107 MEQ/L (98-107); CREATININE FOR GFR 0.92 MG/DL (0.70-1.30); GLOMERULAR FILTRATION RATE > 60.0 (>60); GLUCOSE, FASTING 93 MG/DL (70-100); POTASSIUM SERUM 4.1 MEQ/L (3.5-5.1); SODIUM LEVEL 140 MEQ/L (136-145)
--- NOTE | 2019-11-22 08:02 | ECGEPIP ---
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
[2019-11-22] MEDS ORDERED: ASPIRIN 81 MG ENTERIC TAB PO SCH (09:00)
[2019-11-22] MEDS ORDERED: lisinopriL 40 MG TAB PO SCH (09:00)
--- NOTE | 2019-11-22 12:29 | DS.PDOC ---
Discharge Summary General Date of Admission Nov 21, 2019 at 17:48 Date of Discharge Nov 22, 2019 Discharge Summary DISCHARGE DIAGNOSES HTN urgency Left Face and left arm numbness -MRI Brain: no acute CVA H/o ischemic cva 2013 HTN Previous Smoker Morbid Obesity BMI 47 DISCHARGE MEDICATIONS: pls see below DISCHARGE INSTRUCTIONS: NEUROLOGY REFERRAL TO BE DONE BY PRIMARY CARE PHYSICIAN FOR EMG/NCS OF LEFT UE, AND MRI CERVICAL SPINE to rule out nerve impingement. PRIMARY CARE PHYSICIAN within 5days of discharge HISTORY OF PRESENT ILLNESS: 34 y/o male w h/o small left cerebellar ischemic cva in 2013 on chronic aspirin, HTN, obesity, and prior smoker who presents to [facility] ER with acute onset of L arm and face numbness . He denied any vision changes, CP, sob, abd pain, fever, chills, n/v/d.Pt was found to have htn urgency with presenting blood pressure of 229/140, and given his home dose of metoprolol 50 mg po. He was admitted into the hospitalist service for further management. HOSPITAL COURSE: He was kept on his home medications lisinopril and metoprolol with improvement to baseline 113-118 systolic blood pressure with resolution of the headache and left facial numbness. MRI/MRA brain were normal. Telemetry was sinus rhythm. He continued to complain of slight numbness of the 5th digit on the left hand which improved from admission. He was encouraged to have a cervical spine MRI, refer to neurologist for EMG/NCS as outpt. DISCHARGE PHYSICAL EXAMINATION: VITALS: SEE BELOW GEN:AAO x 3 no respiratory distress HEENT: PERRLA EOMI Face is symmetry tongue is midline LUNGS: CTAB AEBE HEART: S1S2 RRR ABD: obese soft nt nd (+) BS x 4quadrants EXT: no cyanosis or clubbing NEURO: diminished sensation in left 5th digit. motor 5/5 x 4 extremities gait not tested SKIN: tattoos in b/l UE chest back. DISCHARGE LABORATORY DATA : SEE BELOW IMAGING STUDIES: PROCEDURE INFORMATION: Exam: MR Head Without Contrast Exam date and time: 11/21/2019 7:46 PM Age: 34 years old Clinical indication: Weakness, extremity; Bilateral; Patient HX: Left arm weakness/left sided neck pain, HX CVA no access to priors TECHNIQUE: Imaging protocol: MR of the head without contrast. COMPARISON: CT Head without contrast 11/21/2019 5:59 PM FINDINGS: Brain: Normal. No acute infarct. No hemorrhage. No significant white matter disease. No edema. Cerebral ventricles: Normal. No ventriculomegaly. Bones/joints: Unremarkable. Paranasal sinuses: Normal as visualized. No acute sinusitis. Mastoid air cells: Normal as visualized. No mastoid effusion. Orbits: Unremarkable. Soft tissues: Unremarkable. IMPRESSION: Unremarkable examination. Electronically signed by: Yobany Tello On 11/21/2019 20:00:31 PM DD: YOBANY TELLO MD 11/21/191945 DT: VR 11/21/191999 DS: TONEY 11/21/191999 PROCEDURE INFORMATION: Exam: MR Angiogram Head Without Contrast, Arteries Exam date and time: 11/21/2019 7:46 PM Age: 34 years old Clinical indication: Patient HX: Left arm weakness/left sided neck pain, HX CVA no access to priors TECHNIQUE: Imaging protocol: MR angiogram head without contrast. Exam focused on the arteries. 3D rendering (Not supervised by radiologist): MIP and/or 3D reconstructed images were created by the technologist. COMPARISON: CT ANGIO HEAD 11/21/2019 6:52 PM FINDINGS: ANTERIOR CIRCULATION: Right internal carotid artery: Intracranial segment is patent with no significant stenosis. No aneurysm. Right middle cerebral artery: No occlusion or significant stenosis. No aneurysm. Right anterior cerebral artery: No occlusion or significant stenosis. No aneurysm. Left internal carotid artery: Intracranial segment is patent with no significant stenosis. No aneurysm. Left middle cerebral artery: No occlusion or significant stenosis. No aneurysm. Left anterior cerebral artery: No occlusion or significant stenosis. No aneurysm. POSTERIOR CIRCULATION: Right vertebral artery: No occlusion or significant stenosis. No aneurysm. Left vertebral artery: No occlusion or significant stenosis. No aneurysm. Basilar artery: No occlusion or significant stenosis. No aneurysm. Right posterior cerebral artery: No occlusion or significant stenosis. No aneurysm. Left posterior cerebral artery: No occlusion or significant stenosis. No aneurysm. IMPRESSION: No stenosis or occlusion. Electronically signed by: Yobany Tello On 11/21/2019 19:58:28 PM DD: YOBANY TELLO MD 11/21/191945 DT: MACI 11/21/191957 DS: TONEY 11/21/191957 [~ rep ct labl] PROCEDURE INFORMATION: Exam: MR Angiography Neck Without Contrast Exam date and time: 11/21/2019 8:01 PM Age: 34 years old Clinical indication: Patient HX: Left arm weakness/left sided neck pain, HX CVA no access to priors TECHNIQUE: Imaging protocol: Magnetic resonance angiography of the neck without contrast. 3D rendering (Not supervised by radiologist): MIP and/or 3D reconstructed images were created by the technologist. COMPARISON: CT ANGIO NECK 11/21/2019 6:52 PM FINDINGS: Right common carotid artery: No stenosis. No dissection or occlusion. Right internal carotid artery: No stenosis of the extracranial segment. No dissection or occlusion. Right external carotid artery: No stenosis. No dissection or occlusion of the origin. Right vertebral artery: No stenosis. No dissection or occlusion. Left common carotid artery: No stenosis. No dissection or occlusion. Left internal carotid artery: No stenosis of the extracranial segment. No dissection or occlusion. Left external carotid artery: No stenosis. No dissection or occlusion of the origin. Left vertebral artery: No stenosis. No dissection or occlusion. IMPRESSION: No stenosis or occlusion. REFERENCES: NASCET CRITERIA. The degree of internal carotid artery stenosis is based on NASCET criteria. Normal is no stenosis. Mild is less than 50% stenosis. Moderate is 50-69% stenosis. Severe is 70% to 99% stenosis. Total occlusion is no detectable patent lumen. Electronically signed by: Yobany Tello On 11/21/2019 20:18:22 PM TIME SPENT ON DISCHARGE: 30 minutes. Vital Signs/I&Os Vital Signs Date Time Temp Pulse Resp B/P (MAP) Pulse Ox O2 Delivery O2 Flow Rate FiO2 11/22/19 06:00 96.5 66 16 119/81 (94) 94 Room Air I&O- Last 24 Hours up to 6 AM 11/22/19 05:59 Intake Total 0 ml Output Total 0 ml Balance 0 ml Laboratory Data Labs 24H Laboratory Tests 2 11/21/19 18:45: Immature Granulocyte % (Auto) 0.3, Neutrophils (%) (Auto) 56.2, Lymphocytes (%) (Auto) 31.9, Monocytes (%) (Auto) 6.8H, Eosinophils (%) (Auto) 3.9H, Basophils (%) (Auto) 0.9, Neutrophils # (Auto) 4.2, Lymphocytes # (Auto) 2.4, Monocytes # (Auto) 0.5, Eosinophils # (Auto) 0.3, Basophils # (Auto) 0.1, Nucleated Red Blood Cells % (auto) 0.0, Anion Gap 4L, Glomerular Filtration Rate > 60.0, Calcium Level 8.8, Total Bilirubin 0.6, Direct Bilirubin 0.2, Aspartate Amino Transf (AST/SGOT) 31, Alanine Aminotransferase (ALT/SGPT) 74, Alkaline Phosphatase 104, Total Creatine Kinase 211, Creatine Kinase MB 2.3, Creatine Kinase MB Relative Index 1.09, Troponin I < 0.02, Total Protein 7.4, Albumin 4.1, Albumin/Globulin Ratio 1.2, Triglycerides Level 147, Total Cholesterol 192, LDL Cholesterol 116H, Non-HDL Cholesterol (LDL + VLDL) 145, Total HDL Cholesterol 47, Cholesterol/HDL Ratio 4.085, Thyroid Stimulating Hormone (TSH) 3.020 11/21/19 18:47: POC Glucose (Misc Panel) 87, POC Sodium (Misc Panel) 139, POC Potassium (Misc Panel) 3.7, POC Chloride (Misc Panel) 99, POC Total CO2 (Misc Panel) 25.0, POC Blood Urea Nitrogen (Misc Panel 18, POC Ionized Calcium (Misc Panel) 5.0, POC Creatinine (Misc Panel) 0.9, POC Hematocrit (Misc Panel) 48.0 11/22/19 05:52: Nucleated Red Blood Cells % (auto) 0.0, Anion Gap 8, Glomerular Filtration Rate > 60.0, Calcium Level 8.5 CBC/BMP Laboratory Tests 11/21/19 18:45 11/22/19 05:52 Discharge Medications Scheduled Aspirin (Aspirin EC) 81 Mg Tablet.dr, 81 MG PO DAILY, (Reported) Lisinopril (Lisinopril) 40 Mg Tablet, 40 MG PO DAILY, (Reported) Metoprolol Succinate (Metoprolol Succinate) 50 Mg Tab.er.24h, 50 MG PO QHS, (Reported) Allergies Coded Allergies: TAPE (Verified Allergy, Unknown, WHITE MEDICAL TAPE, 04/22/19) MOISES DIEZ MD Nov 22, 2019 12:21
[2019-11-22] MEDS ORDERED: METOPROLOL SUCC (TopROL XL) 50MG **XL** TAB PO SCH (21:00)
== END 2019-11-22 10:30 | disposition home or self-care (01) ==
LOC: M ED 17:47 → M ED INP 17:48 → ENRESERV 23:05 → M MSPAV 11-22 00:18
PROVIDERS: ADMIT Internal Medicine; ATTEND Internal Medicine
DX: I16.0 Hypertensive urgency (principal); R20.2 Paresthesia of skin; M54.2 Cervicalgia; R53.1 Weakness; R29.818 Other symptoms and signs involving the nervous system; I10 Essential (primary) hypertension; Z86.73 Personal history of transient ischemic attack (TIA), and cerebral infarction without residual deficits; Z79.899 Other long term (current) drug therapy; Z87.891 Personal history of nicotine dependence; E66.01 Morbid (severe) obesity due to excess calories; Z79.82 Long term (current) use of aspirin
CPT/HCPCS: 36415; 70450; 70496; 70498; 70544; 70547; 70551; 80047; 80048; 80061; 80076; 82550; 82553; 84443; 84484; 85025; 85027; 93005; 93041; 94760; 96372; 96374; 97161; 99285; G0378; J1644; Q9967

== ENCOUNTER → 2020-10-05 | Outpatient (REF) | payer OTHER ==
[~2020-10-05] MED LIST changes: +ASPI81TA27 PO; -LISI-538 PO; +LISI10TA22 PO; -LISI10TA4 PO; +LISI20TA33 PO; +LISI40TA4 PO; +METO1TAB7 PO
[2020-10-05 18:06] LABS: APPEARANCE, URINE CLEAR (CLEAR); BACTERIA, URINE AUTO NEGATIVE (NEGATIVE); BILIRUBIN, URINE AUTO NEGATIVE (NEGATIVE); BLOOD, URINE BLOOD NEGATIVE (NEGATIVE); COLOR, URINE YELLOW (YELLOW); GLUCOSE, URINE (UA) AUTO NEGATIVE (NEGATIVE); KETONE, URINE AUTO NEGATIVE (NEGATIVE); LEUKOCYTE ESTERASE, URINE AUTO NEGATIVE (NEGATIVE); MUCUS, URINE SMALL (NEGATIVE); NITRITE, URINE AUTO NEGATIVE (NEGATIVE); PROTEIN, URINE AUTO NEGATIVE (NEGATIVE); RBC, URINE AUTO 0 /HPF (0-3); SPECIFIC GRAVITY URINE AUTO 1.021 (1.002-1.035); SQUAMOUS EPITHELIAL CELL UR AU 0 /HPF (0-6); UROBILINOGEN, URINE AUTO 0.2 mg/dL (0.0-2.0); WBC, URINE AUTO 1 /HPF (0-3)
== END ==
LOC: M SMT 17:02
PROVIDERS: ATTEND Nurse Practitioner Women's Health
DX: E29.1 Testicular hypofunction (principal); R53.83 Other fatigue

== ENCOUNTER → 2020-10-07 | Outpatient (CLI) | payer OTHER ==
[2020-10-07 11:21] LABS: HEMATOCRIT 47.4 % (42.0-52.0); HEMOGLOBIN 15.9 g/dl (13.5-17.5); MEAN CORPUSCULAR HEMOGLOBIN 30.1 pg (27.0-33.0); MEAN CORPUSCULAR HGB CONC 33.5 g/dl (32.0-36.5); MEAN CORPUSCULAR VOLUME 89.6 fl (80.0-96.0); PLATELET COUNT, AUTOMATED 195 10^3/uL (150-450); RED BLOOD COUNT 5.29 10^6/uL (4.30-6.10)
[2020-10-07 11:52] LABS: ESTRADIOL 64.4 PG/ML (<39.8); FOLLICLE STIMULATING HORMONE 3.9 mIU/mL (1.4-18.1); LUTEINIZING HORMONE 5.1 mIU/mL (1.5-9.3); PROLACTIN 14.7 NG/ML (2.1-17.7)
[2020-10-08 16:09] LABS: SEX HORMONE BINDING GLOBULIN 15.8 nmol/L (16.5-55.9); TESTOSTERONE FREE (DIRECT) 12.9 pg/mL (8.7-25.1)
== END ==
LOC: M PLALAB 07:13
PROVIDERS: ATTEND Nurse Practitioner Women's Health
DX: E29.1 Testicular hypofunction (principal)

== ENCOUNTER 2021-04-06 02:18 | Emergency (ER) | payer OTHER ==
[~2021-04-06] VITALS: Ht 177.8 cm; Wt 143.2 kg
[2021-04-06 02:19] VITALS: BP 170/92
[2021-04-06] MEDS ORDERED: METH-1165 PO ×2 (03:44→03:46)
[2021-04-06] MEDS ORDERED: NEUR300C PO ×2 (03:44→03:46)
[2021-04-06] MEDS ORDERED: GABAPENTIN 300 MG CAP PO ONE (03:45)
[2021-04-06] MEDS ORDERED: methocarbamoL 750 MG TAB PO ONE (03:45)
== END 2021-04-06 03:59 | disposition home or self-care (01) ==
LOC: M ED 02:18
DX: R20.2 Paresthesia of skin (principal); E11.9 Type 2 diabetes mellitus without complications; I10 Essential (primary) hypertension; E78.5 Hyperlipidemia, unspecified; Z86.73 Personal history of transient ischemic attack (TIA), and cerebral infarction without residual deficits; Z79.899 Other long term (current) drug therapy; Z91.89 Other specified personal risk factors, not elsewhere classified

== ENCOUNTER → 2021-05-06 | Outpatient (CLI) | payer OTHER ==
[~2021-05-06] MED LIST changes: +METH-1165 PO; +NEUR300C PO
== END ==
LOC: M PLARAD 10:48
PROVIDERS: ATTEND Nurse Practitioner Family
DX: M54.12 Radiculopathy, cervical region (principal)

== ENCOUNTER 2022-02-27 10:59 | Emergency (ER) | payer OTHER ==
[~2022-02-27] VITALS: Ht 177.8 cm; Wt 129.6 kg
[2022-02-27 12:47] LABS: BASO # 0.1 10^3/uL (0.0-0.2); BASO % 0.9 % (0.0-1.0); EOS # 0.2 10^3/uL (0.0-0.5); HEMATOCRIT 50.6 % (42.0-52.0); HEMOGLOBIN 17.3 g/dl (13.5-17.5); LYMPH # 2.3 10^3/uL (1.5-5.0); LYMPH % 28.3 % (24.0-44.0); MEAN CORPUSCULAR HEMOGLOBIN 30.6 pg (27.0-33.0); MEAN CORPUSCULAR HGB CONC 34.2 g/dl (32.0-36.5); MEAN CORPUSCULAR VOLUME 89.4 fl (80.0-96.0); MONO # 0.6 10^3/uL (0.0-0.8); NEUTROPHILS # 4.9 10^3/uL (1.5-8.5); NEUTROPHILS % 61.3 % (36.0-66.0); PLATELET COUNT, AUTOMATED 207 10^3/uL (150-450); RED BLOOD COUNT 5.66 10^6/uL (4.30-6.10)
[2022-02-27 12:52] LABS: INR 0.99; PARTIAL THROMBOPLASTIN TIME 29.6 SECONDS (24.8-34.2); PROTHROMBIN TIME 13.3 SECONDS (12.5-14.5)
[2022-02-27 12:56] LABS: BLOOD UREA NITROGEN 20 MG/DL (9-23); CALCIUM LEVEL 9.3 MG/DL (8.5-10.1); CARBON DIOXIDE LEVEL 27 MMOL/L (20-31); CHLORIDE LEVEL 103 MMOL/L (98-107); CK-MB VALUE MASS < 1.0 NG/ML (<3.6); CPK CREATINE PHOSPHOKINASE 173 U/L (46-171); CREATININE FOR GFR 0.84 MG/DL (0.70-1.30); GLOMERULAR FILTRATION RATE > 60.0 (>60); GLUCOSE, FASTING 79 MG/DL (60-100); MB/CK RELATIVE INDEX 0.57 (< OR =4); POTASSIUM SERUM 4.2 MMOL/L (3.5-5.1); SODIUM LEVEL 137 MMOL/L (136-145)
[2022-02-27] MEDS ORDERED: lisinopriL 40MG TAB PO ONE (16:55)
[2022-02-27] MEDS ORDERED: NS 1,000 ML IV ONE (17:30)
[2022-02-27 17:58] LABS: THYROID STIMULATING HORMONE 1.982 uIU/ML (0.55-4.78)
[2022-02-27 17:59] LABS: FREE T4 0.85 NG/DL (0.89-1.76)
[2022-02-27 18:35] LABS: CK-MB VALUE MASS < 1.0 NG/ML (<3.6)
[2022-02-27 18:37] LABS: CPK CREATINE PHOSPHOKINASE 140 U/L (46-171); MB/CK RELATIVE INDEX 0.71 (< OR =4)
[2022-02-27] MEDS ORDERED: METOPROLOL SUCC (TopROL XL) 100MG *XL* TAB PO ONE (19:35)
[2022-02-27] MEDS ORDERED: LIDO2SOL17 PO (19:48)
[2022-02-27] MEDS ORDERED: BENZ200C70 PO (19:48)
[2022-02-27] MEDS ORDERED: TOPR100T PO (19:48)
[2022-02-27 20:00] VITALS: BP 154/97
[2022-02-27 20:03] VITALS: BP 154/64
== END 2022-02-27 20:31 | disposition home or self-care (01) ==
LOC: M ED 10:59
DX: I10 Essential (primary) hypertension (principal); R07.0 Pain in throat; R05.9 Cough, unspecified; Z86.73 Personal history of transient ischemic attack (TIA), and cerebral infarction without residual deficits; Z79.899 Other long term (current) drug therapy; Z91.89 Other specified personal risk factors, not elsewhere classified

== ENCOUNTER 2022-04-24 07:06 | Emergency (ER) | payer OTHER ==
[~2022-04-24] VITALS: Ht 177.8 cm; Wt 136.5 kg
[~2022-04-24 07:06] MED LIST changes: +BENZ200C70 PO; +LIDO15SO4 PO; +TOPR100T PO
[2022-04-24] MEDS ORDERED: LOPI600T PO (07:24)
[2022-04-24] MEDS ORDERED: PENI500T (07:24)
[2022-04-24] MEDS ORDERED: ISOVUE-370 76% 100ML VIAL As Ordered ONE (08:11)
[2022-04-24] MEDS ORDERED: TRUL10IN SC (08:14)
[2022-04-24] MEDS ORDERED: ALLO100T PO (08:14)
[2022-04-24] MEDS ORDERED: ATOR80TA59 PO (08:14)
[2022-04-24 08:23] LABS: BASO # 0.1 10^3/uL (0.0-0.2); BASO % 0.7 % (0.0-1.0); EOS # 0.3 10^3/uL (0.0-0.5); EOS % 3.2 % (0.0-3.0); HEMATOCRIT 47.5 % (42.0-52.0); HEMOGLOBIN 16.6 g/dl (13.5-17.5); LYMPH # 3.2 10^3/uL (1.5-5.0); LYMPH % 38.4 % (24.0-44.0); MEAN CORPUSCULAR HGB CONC 34.9 g/dl (32.0-36.5); MEAN CORPUSCULAR VOLUME 88.6 fl (80.0-96.0); MONO # 0.7 10^3/uL (0.0-0.8); MONO % 8.1 % (2.0-8.0); NEUTROPHILS # 4.1 10^3/uL (1.5-8.5); NEUTROPHILS % 49.2 % (36.0-66.0); PLATELET COUNT, AUTOMATED 216 10^3/uL (150-450); RED BLOOD COUNT 5.36 10^6/uL (4.30-6.10); WHITE BLOOD COUNT 8.3 10^3/uL (4.0-10.0)
[2022-04-24 08:52] LABS: LIPASE 49 U/L (12-53)
[2022-04-24 08:54] LABS: CPK CREATINE PHOSPHOKINASE 146 U/L (46-171)
[2022-04-24 08:58] LABS: ALBUMIN 3.9 G/DL (3.2-5.2); ALKALINE PHOSPHATASE 84 U/L (46-116); ALT/SGPT 43 U/L (7.0-40); AST/SGOT 22 U/L (<34); BILIRUBIN,DIRECT 0.2 MG/DL (<0.4); BILIRUBIN,TOTAL 0.7 MG/DL (0.3-1.2); BLOOD UREA NITROGEN 17 MG/DL (9-23); CALCIUM LEVEL 8.7 MG/DL (8.5-10.1); CARBON DIOXIDE LEVEL 26 MMOL/L (20-31); CHLORIDE LEVEL 105 MMOL/L (98-107); CK-MB VALUE MASS < 1.0 NG/ML (<3.6); CREATININE FOR GFR 0.84 MG/DL (0.70-1.30); FREE T4 0.83 NG/DL (0.89-1.76); GLOMERULAR FILTRATION RATE > 60.0 (>60); GLUCOSE, FASTING 95 MG/DL (60-100); MB/CK RELATIVE INDEX 0.68 (< OR =4); POTASSIUM SERUM 4.1 MMOL/L (3.5-5.1); SODIUM LEVEL 138 MMOL/L (136-145); THYROID STIMULATING HORMONE 4.365 uIU/ML (0.55-4.78); TOTAL PROTEIN 6.9 G/DL (5.7-8.2)
[2022-04-24 09:02] LABS: RSV AMPLIFICATION NEGATIVE (NEGATIVE)
[2022-04-24] MEDS ORDERED: ONDANSETRON 4MG 2ML VIAL IV ONE (09:05)
[2022-04-24] MEDS ORDERED: MORPHINE 4 MG/ML 1ML VIAL IV ONE (09:05)
[2022-04-24] MEDS ORDERED: lisinopriL 40MG TAB PO ONE (09:10)
[2022-04-24] MEDS ORDERED: KETOROLAC 30 MG/ML 1ML VIAL IV ONE (09:15)
[2022-04-24 09:31] LABS: CK-MB VALUE MASS < 1.0 NG/ML (<3.6)
[2022-04-24 09:32] LABS: CPK CREATINE PHOSPHOKINASE 137 U/L (46-171); MB/CK RELATIVE INDEX 0.72 (< OR =4)
[2022-04-24] MEDS ORDERED: cefTRIAXone SOD 1 GM in D5W MINI-BAG PLUS 50 ML IV ONE (09:35)
[2022-04-24] MEDS ORDERED: CEFD300C41 PO (11:18)
[2022-04-24 11:40] VITALS: BP 148/84
== END 2022-04-24 11:50 | disposition home or self-care (01) ==
LOC: M ED 07:06
DX: R09.1 Pleurisy (principal); R07.9 Chest pain, unspecified; J02.0 Streptococcal pharyngitis; H66.91 Otitis media, unspecified, right ear; I10 Essential (primary) hypertension; Z86.73 Personal history of transient ischemic attack (TIA), and cerebral infarction without residual deficits; I77.819 Aortic ectasia, unspecified site; K76.0 Fatty (change of) liver, not elsewhere classified; Z79.899 Other long term (current) drug therapy; Z91.89 Other specified personal risk factors, not elsewhere classified
CPT/HCPCS: 71045; 71275; 80047; 80048; 80076; 82550; 82553; 83690; 84439; 84443; 84484; 85025; 87631; 93005; 93041; 94760; 96365; 96375; 99285; J0696; J2270; J2405; Q9967

== ENCOUNTER 2022-05-02 11:45 | Emergency (ER) | payer OTHER ==
[~2022-05-02] VITALS: Ht 177.8 cm; Wt 136.8 kg
[~2022-05-02 11:45] MED LIST changes: +ALLO100T PO; +ATOR80TA59 PO; +CEFD300C41 PO; +LOPI600T PO; +PENI500T; +TRUL10IN SC
[2022-05-02 14:43] VITALS: BP 144/107
== END 2022-05-02 14:49 | disposition home or self-care (01) ==
LOC: M ED 11:45
DX: M79.602 Pain in left arm (principal); K21.9 Gastro-esophageal reflux disease without esophagitis; Z86.73 Personal history of transient ischemic attack (TIA), and cerebral infarction without residual deficits; Z79.899 Other long term (current) drug therapy; Z91.89 Other specified personal risk factors, not elsewhere classified

== ENCOUNTER → 2022-06-08 | Outpatient (CLI) | payer OTHER ==
[~2022-06-08] MED LIST changes: +LIDO15SO PO; -LIDO15SO4 PO
== END ==
LOC: M PLAIMG 12:17
PROVIDERS: ATTEND Nurse Practitioner Family
DX: M25.562 Pain in left knee (principal); R93.6 Abnormal findings on diagnostic imaging of limbs

== ENCOUNTER 2022-08-03 06:54 | Emergency (ER) | payer OTHER ==
[~2022-08-03] VITALS: Ht 177.8 cm; Wt 140.4 kg
[2022-08-03] MEDS ORDERED: FURO40TA2 (07:09)
[2022-08-03] MEDS ORDERED: VITA200012 PO (07:09)
[2022-08-03 07:32] LABS: BASO # 0.1 10^3/uL (0.0-0.2); BASO % 0.7 % (0.0-1.0); EOS # 0.3 10^3/uL (0.0-0.5); EOS % 2.8 % (0.0-3.0); HEMATOCRIT 45.2 % (42.0-52.0); HEMOGLOBIN 15.7 g/dl (13.5-17.5); LYMPH # 3.7 10^3/uL (1.5-5.0); LYMPH % 42.1 % (24.0-44.0); MEAN CORPUSCULAR HEMOGLOBIN 30.8 pg (27.0-33.0); MEAN CORPUSCULAR HGB CONC 34.7 g/dl (32.0-36.5); MEAN CORPUSCULAR VOLUME 88.8 fl (80.0-96.0); MONO # 0.8 10^3/uL (0.0-0.8); MONO % 8.6 % (2.0-8.0); NEUTROPHILS % 45.6 % (36.0-66.0); PLATELET COUNT, AUTOMATED 201 10^3/uL (150-450); RED BLOOD COUNT 5.09 10^6/uL (4.30-6.10); WHITE BLOOD COUNT 8.8 10^3/uL (4.0-10.0)
[2022-08-03 08:12] LABS: BLOOD UREA NITROGEN 16 MG/DL (9-23); CALCIUM LEVEL 9.5 MG/DL (8.5-10.1); CARBON DIOXIDE LEVEL 25 MMOL/L (20-31); CHLORIDE LEVEL 106 MMOL/L (98-107); CK-MB VALUE MASS 1.5 NG/ML (<3.6); CPK CREATINE PHOSPHOKINASE 318 U/L (46-171); CREATININE FOR GFR 0.92 MG/DL (0.70-1.30); GLOMERULAR FILTRATION RATE > 60.0 (>60); GLUCOSE, FASTING 118 MG/DL (60-100); MB/CK RELATIVE INDEX 0.47 (< OR =4); POTASSIUM SERUM 3.7 MMOL/L (3.5-5.1); SODIUM LEVEL 136 MMOL/L (136-145)
[2022-08-03] MEDS ORDERED: NS 500 ML IV ONE (08:35)
[2022-08-03 09:06] LABS: FREE T4 0.71 NG/DL (0.89-1.76); THYROID STIMULATING HORMONE 2.861 uIU/ML (0.55-4.78)
[2022-08-03] MEDS ORDERED: ISOVUE-370 76% 100ML VIAL As Ordered ONE (10:30)
[2022-08-03 11:00] LABS: CK-MB VALUE MASS 1.7 NG/ML (<3.6)
[2022-08-03 11:08] LABS: MB/CK RELATIVE INDEX 0.6 (< OR =4)
[2022-08-03 11:57] LABS: APPEARANCE, URINE CLEAR (CLEAR); BACTERIA, URINE AUTO NEGATIVE (NEGATIVE); BILIRUBIN, URINE AUTO NEGATIVE (NEGATIVE); BLOOD, URINE BLOOD NEGATIVE (NEGATIVE); COLOR, URINE YELLOW (YELLOW); GLUCOSE, URINE (UA) AUTO 1+ mg/dL (NEGATIVE); KETONE, URINE AUTO NEGATIVE (NEGATIVE); LEUKOCYTE ESTERASE, URINE AUTO NEGATIVE (NEGATIVE); NITRITE, URINE AUTO NEGATIVE (NEGATIVE); PROTEIN, URINE AUTO NEGATIVE (NEGATIVE); RBC, URINE AUTO 0 /HPF (0-3); SPECIFIC GRAVITY URINE AUTO 1.009 (1.002-1.035); SQUAMOUS EPITHELIAL CELL UR AU 0 /HPF (0-6); UROBILINOGEN, URINE AUTO 0.2 mg/dL (0.0-2.0); WBC, URINE AUTO 0 /HPF (0-3)
[2022-08-03] MEDS ORDERED: CHLO125TA PO (14:21)
[2022-08-03] MEDS ORDERED: LISI20TA33 PO (14:21)
[2022-08-03] MEDS ORDERED: CORE6.25 PO (14:21)
[2022-08-03 14:57] VITALS: BP 139/97; TEMP 97.5; O2SAT 98
== END 2022-08-03 15:03 | disposition home or self-care (01) ==
LOC: M ED 06:54
DX: R42 Dizziness and giddiness (principal); I10 Essential (primary) hypertension; K21.9 Gastro-esophageal reflux disease without esophagitis; T88.7XXA Unspecified adverse effect of drug or medicament, initial encounter; E78.5 Hyperlipidemia, unspecified; E11.9 Type 2 diabetes mellitus without complications; Z86.73 Personal history of transient ischemic attack (TIA), and cerebral infarction without residual deficits; Z79.899 Other long term (current) drug therapy; Z91.89 Other specified personal risk factors, not elsewhere classified
CPT/HCPCS: 70450; 70498; 71275; 80048; 81001; 82550; 82553; 83735; 84439; 84443; 84484; 85025; 93005; 93041; 96360; 99285; Q9967

== ENCOUNTER 2022-09-01 19:56 | Emergency (ER) | payer OTHER ==
[~2022-09-01] VITALS: Ht 177.8 cm; Wt 138.6 kg
[~2022-09-01 19:56] MED LIST changes: +CHLO125TA PO; +CORE6.25 PO; +FURO40TA2; +VITA200012 PO
[2022-09-01 19:58] VITALS: BP 141/92; TEMP 96.8; O2SAT 99
== END 2022-09-01 22:08 | disposition left against medical advice (07) ==
LOC: M ED 19:56
DX: Z53.21 Procedure and treatment not carried out due to patient leaving prior to being seen by health care provider (principal)

== ENCOUNTER 2022-10-09 06:48 | Emergency (ER) | payer OTHER, SELFPAY ==
[~2022-10-09] VITALS: Ht 177.8 cm; Wt 136.1 kg
[2022-10-09 08:02] LABS: HEMATOCRIT 48.5 % (42.0-52.0); MEAN CORPUSCULAR HEMOGLOBIN 30.5 pg (27.0-33.0); MEAN CORPUSCULAR HGB CONC 35.1 g/dl (32.0-36.5); MEAN CORPUSCULAR VOLUME 87.1 fl (80.0-96.0); PLATELET COUNT, AUTOMATED 227 10^3/uL (150-450); RED BLOOD COUNT 5.57 10^6/uL (4.30-6.10); WHITE BLOOD COUNT 9.1 10^3/uL (4.0-10.0)
[2022-10-09] MEDS ORDERED: KETOROLAC 30 MG/ML 1ML VIAL IV ONE (08:25)
[2022-10-09] MEDS ORDERED: ISOVUE-370 76% 100ML VIAL As Ordered ONE (08:35)
[2022-10-09 09:21] LABS: ALBUMIN 4.1 G/DL (3.2-5.2); BILIRUBIN,DIRECT 0.2 MG/DL (<0.4); BILIRUBIN,TOTAL 0.7 MG/DL (0.3-1.2); TOTAL PROTEIN 7.2 G/DL (5.7-8.2)
[2022-10-09 09:51] VITALS: BP 113/76; TEMP 98; O2SAT 97
== END 2022-10-09 09:56 | disposition home or self-care (01) ==
LOC: M ED 06:48
DX: K59.00 Constipation, unspecified (principal); R91.1 Solitary pulmonary nodule; E11.9 Type 2 diabetes mellitus without complications; I10 Essential (primary) hypertension; Z86.79 Personal history of other diseases of the circulatory system; Z86.73 Personal history of transient ischemic attack (TIA), and cerebral infarction without residual deficits; Z91.048 Other nonmedicinal substance allergy status; Z79.02 Long term (current) use of antithrombotics/antiplatelets; Z79.811 Long term (current) use of aromatase inhibitors; Z79.899 Other long term (current) drug therapy
CPT/HCPCS: 74177; 80047; 80076; 81001; 83690; 85027; 96374; 99284; J1885; Q9967

== ENCOUNTER 2023-08-24 04:13 | Inpatient (IN) | payer OTHER ==
[2023-08-24] VITALS (9 sets, daily range): BP systolic 132–160; BP diastolic 76–94; TEMP 97–97.9; O2SAT 89–98
[~2023-08-24 04:13] MED LIST changes: +CEFD1CAP9 PO; -CEFD300C41 PO; -LIDO15SO PO; +LIDO15SO8 PO
[2023-08-24] MEDS: ACETAMINOPHEN *IV* 1,000 MG in IV 1 EA IV ONE (06:00)
[2023-08-24] MEDS: ONDANSETRON 4MG 2ML VIAL IV ONE (06:00)
[2023-08-24] MEDS ORDERED: GLUCAGON INJ 1MG VIAL SC PRN (15:05)
[2023-08-24] MEDS ORDERED: DEXTROSE 50% 50ML SYRINGE IV PRN (15:05)
[2023-08-24] MEDS ORDERED: GLUCOSE 4 GM CHEW PO PRN (15:05)
[2023-08-24 15:14] LABS: INR 1.07; PARTIAL THROMBOPLASTIN TIME 31.1 SECONDS (24.8-34.2); PROTHROMBIN TIME 13.6 SECONDS (12.5-14.5)
[2023-08-24 15:22] LABS: ALBUMIN 3.7 G/DL (3.2-5.2); ALKALINE PHOSPHATASE 101 U/L (46-116); ALT/SGPT 42 U/L (7.0-40); AST/SGOT 25 U/L (<34); BILIRUBIN,TOTAL 0.6 MG/DL (0.3-1.2); BLOOD UREA NITROGEN 21 MG/DL (9-23); CALCIUM LEVEL 9.3 MG/DL (8.5-10.1); CARBON DIOXIDE LEVEL 21 MMOL/L (20-31); CHLORIDE LEVEL 109 MMOL/L (98-107); CREATININE FOR GFR 0.84 MG/DL (0.70-1.30); GLOMERULAR FILTRATION RATE > 60.0 (>60); GLUCOSE, FASTING 94 MG/DL (60-100); POTASSIUM SERUM 3.8 MMOL/L (3.5-5.1); SODIUM LEVEL 139 MMOL/L (136-145); TOTAL PROTEIN 6.3 G/DL (5.7-8.2)
[2023-08-24] MEDS ORDERED: METO200T15 PO (15:34)
[2023-08-24] MEDS ORDERED: TRUL10IN SC (15:34)
[2023-08-24] MEDS ORDERED: LISI40TA4 PO (15:34)
[2023-08-24] MEDS ORDERED: GABA-282 PO (15:34)
[2023-08-24] MEDS ORDERED: D32000CA PO (15:34)
[2023-08-24] MEDS ORDERED: LORA-1041 PO (15:34)
[2023-08-24] MEDS ORDERED: NS 1,000 ML IV SCH (15:35)
[2023-08-24] MEDS ORDERED: HOME MED LIST COMPLETE! XX SCH (15:35)
[2023-08-24] MEDS ORDERED: [UNRECOGNIZED DRUG - REMARK] XX SCH (15:50)
[2023-08-24 15:51] LABS: HEMATOCRIT 41.4 % (42.0-52.0); HEMOGLOBIN 14.6 g/dl (13.5-17.5); MEAN CORPUSCULAR HEMOGLOBIN 31.9 pg (27.0-33.0); MEAN CORPUSCULAR HGB CONC 35.3 g/dl (32.0-36.5); MEAN CORPUSCULAR VOLUME 90.6 fl (80.0-96.0); PLATELET COUNT, AUTOMATED 226 10^3/uL (150-450); RED BLOOD COUNT 4.57 10^6/uL (4.30-6.10)
[2023-08-24 15:58] LABS: CHOLESTEROL RISK RATIO 5.32 (<5); HDL CHOLESTEROL 32.7 MG/DL (>40); LDL CHOLESTEROL 81.7 MG/DL (<100); NON-HDL-C 141.3 MG/DL
[2023-08-24] MEDS ORDERED: GABAPENTIN 300 MG CAP PO PRN (16:25)
[2023-08-24 16:39] LABS: HEMOGLOBIN A1c 5.3 % (4.0-6.0)
[2023-08-24] MEDS: INSULIN LISPRO (NovoLOG) PER UNIT SC SCH (17:30)
[2023-08-24] MEDS: LORATADINE 10 MG TAB PO SCH (20:17)
[2023-08-24] MEDS: ATORVASTATIN 20 MG TAB PO SCH (20:17)
[2023-08-25] VITALS (12 sets, daily range): BP systolic 149–164; BP diastolic 90–104; TEMP 97.2–98.6; O2SAT 94–98
[2023-08-25] MEDS: METOPROLOL SUCC (TopROL XL) 100MG *XL* TAB PO SCH (03:31)
[2023-08-25 05:11] LABS: HEMATOCRIT 42.7 % (42.0-52.0); HEMOGLOBIN 14.9 g/dl (13.5-17.5); MEAN CORPUSCULAR HEMOGLOBIN 31.6 pg (27.0-33.0); MEAN CORPUSCULAR HGB CONC 34.9 g/dl (32.0-36.5); MEAN CORPUSCULAR VOLUME 90.7 fl (80.0-96.0); PLATELET COUNT, AUTOMATED 186 10^3/uL (150-450); RED BLOOD COUNT 4.71 10^6/uL (4.30-6.10); WHITE BLOOD COUNT 6.2 10^3/uL (4.0-10.0)
[2023-08-25 05:39] LABS: ALBUMIN 3.6 G/DL (3.2-5.2); ALKALINE PHOSPHATASE 97 U/L (46-116); ALT/SGPT 47 U/L (7.0-40); AST/SGOT 22 U/L (<34); BILIRUBIN,TOTAL 0.7 MG/DL (0.3-1.2); BLOOD UREA NITROGEN 16 MG/DL (9-23); CARBON DIOXIDE LEVEL 27 MMOL/L (20-31); CHLORIDE LEVEL 107 MMOL/L (98-107); CREATININE FOR GFR 0.84 MG/DL (0.70-1.30); GLOMERULAR FILTRATION RATE > 60.0 (>60); GLUCOSE, FASTING 90 MG/DL (60-100); POTASSIUM SERUM 4.4 MMOL/L (3.5-5.1); SODIUM LEVEL 139 MMOL/L (136-145); TOTAL PROTEIN 6.4 G/DL (5.7-8.2)
[2023-08-25] MEDS: lisinopriL 40MG TAB PO SCH (11:10)
[2023-08-25] MEDS: allopurinoL 100 MG TAB PO SCH (11:10)
[2023-08-25] MEDS: ASPIRIN 81MG ENTERIC TABLET PO SCH (11:10)
[2023-08-25] MEDS ORDERED: ASPI81TAEC PO (14:20)
== END 2023-08-25 15:55 | disposition home or self-care (01) | DRG 103 ==
LOC: M ED 04:13 → M ICU 06:00
PROVIDERS: ADMIT Preventive Medicine Undersea and Hyperbaric Medicine; ATTEND Preventive Medicine Undersea and Hyperbaric Medicine
PROC: B246ZZZ Ultrasonography of Right and Left Heart (ICD-10-PCS; principal; 2023-08-25)
DX: G43.809 Other migraine, not intractable, without status migrainosus (principal); R20.0 Anesthesia of skin; R53.1 Weakness; E11.9 Type 2 diabetes mellitus without complications; I10 Essential (primary) hypertension; M10.9 Gout, unspecified; Z87.891 Personal history of nicotine dependence; Z86.73 Personal history of transient ischemic attack (TIA), and cerebral infarction without residual deficits; Z79.899 Other long term (current) drug therapy; Z88.1 Allergy status to other antibiotic agents; Z91.048 Other nonmedicinal substance allergy status

== ENCOUNTER 2023-09-03 15:09 | Emergency (ER) | payer OTHER ==
[~2023-09-03] VITALS: Ht 177.8 cm; Wt 141.1 kg
[2023-09-03 15:09] VITALS: BP 158/98; TEMP 99.1; O2SAT 97
[~2023-09-03 15:09] MED LIST changes: +ASPI81TAEC PO; +D32000CA PO; +GABA-282 PO; +LORA-1041 PO; +METO200T15 PO
[2023-09-04] MEDS ORDERED: FAMO20TA PO (11:32)
[2023-09-04] MEDS ORDERED: ASPI81TA26 PO (11:32)
[2023-09-04] MEDS ORDERED: COLA100C5 PO (12:23)
[2023-09-04] MEDS ORDERED: MIRA3350 PO (12:23)
== END 2023-09-03 18:20 | disposition left against medical advice (07) ==
LOC: M ED 15:09
DX: Z53.21 Procedure and treatment not carried out due to patient leaving prior to being seen by health care provider (principal)

== ENCOUNTER 2023-09-04 07:15 | Emergency (ER) | payer OTHER ==
[~2023-09-04] VITALS: Ht 177.8 cm; Wt 141.6 kg
[2023-09-04 08:50] LABS: BASO # 0.1 10^3/uL (0.0-0.2); BASO % 0.8 % (0.0-1.0); EOS # 0.1 10^3/uL (0.0-0.5); EOS % 2.1 % (0.0-3.0); HEMATOCRIT 48.2 % (42.0-52.0); HEMOGLOBIN 16.8 g/dl (13.5-17.5); LYMPH # 2.1 10^3/uL (1.5-5.0); LYMPH % 32.3 % (24.0-44.0); MEAN CORPUSCULAR HEMOGLOBIN 31.8 pg (27.0-33.0); MEAN CORPUSCULAR HGB CONC 34.9 g/dl (32.0-36.5); MEAN CORPUSCULAR VOLUME 91.1 fl (80.0-96.0); MONO # 0.5 10^3/uL (0.0-0.8); MONO % 7.3 % (2.0-8.0); NEUTROPHILS # 3.7 10^3/uL (1.5-8.5); NEUTROPHILS % 56.7 % (36.0-66.0); PLATELET COUNT, AUTOMATED 181 10^3/uL (150-450); RED BLOOD COUNT 5.29 10^6/uL (4.30-6.10); WHITE BLOOD COUNT 6.6 10^3/uL (4.0-10.0)
[2023-09-04 09:19] LABS: BLOOD UREA NITROGEN 18 MG/DL (9-23); CALCIUM LEVEL 9.2 MG/DL (8.5-10.1); CARBON DIOXIDE LEVEL 28 MMOL/L (20-31); CHLORIDE LEVEL 104 MMOL/L (98-107); CK-MB VALUE MASS < 1.0 NG/ML (<3.6); CPK CREATINE PHOSPHOKINASE 98 U/L (46-171); CREATININE FOR GFR 0.86 MG/DL (0.70-1.30); GLOMERULAR FILTRATION RATE > 60.0 (>60); GLUCOSE, FASTING 114 MG/DL (60-100); MB/CK RELATIVE INDEX 1.02 (< OR =4); POTASSIUM SERUM 4.2 MMOL/L (3.5-5.1); SODIUM LEVEL 136 MMOL/L (136-145)
[2023-09-04] MEDS: DOCUSATE SODIUM 100MG CAPSULE PO ONE (09:26)
[2023-09-04] MEDS: NS 1,000 ML IV ONE (09:26)
[2023-09-04] MEDS: MAGNESIUM CITRATE 300ML BTL PO ONE (09:26)
[2023-09-04] MEDS: KETOROLAC 30 MG/ML 1ML VIAL IV ONE (09:26)
[2023-09-04] MEDS ORDERED: ASPI81TA26 PO (11:32)
[2023-09-04] MEDS ORDERED: FAMO20TA PO (11:32)
[2023-09-04] MEDS ORDERED: HOME MED LIST COMPLETE! XX SCH (11:35)
[2023-09-04 12:23] VITALS: BP 138/94; TEMP 96.3; O2SAT 96
[2023-09-04] MEDS ORDERED: COLA100C5 PO (12:23)
[2023-09-04] MEDS ORDERED: MIRA3350 PO (12:23)
[2023-09-04] MEDS: LACTULOSE 20GM/30ML SYRUP UDC PO ONE (12:35)
== END 2023-09-04 12:40 | disposition home or self-care (01) ==
LOC: M ED 07:15
DX: K59.00 Constipation, unspecified (principal); K76.0 Fatty (change of) liver, not elsewhere classified; Z87.442 Personal history of urinary calculi; Z86.73 Personal history of transient ischemic attack (TIA), and cerebral infarction without residual deficits; Z79.899 Other long term (current) drug therapy; Z88.1 Allergy status to other antibiotic agents; Z91.89 Other specified personal risk factors, not elsewhere classified
CPT/HCPCS: 74176; 80048; 81001; 82550; 82553; 84484; 85025; 93005; 96361; 96374; 99284; J1885

== ENCOUNTER 2023-10-11 09:19 | Emergency (ER) | payer OTHER ==
[~2023-10-11] VITALS: Ht 177.8 cm; Wt 144.0 kg
[~2023-10-11 09:19] MED LIST changes: +ASPI81TA26 PO; +COLA100C5 PO; +FAMO20TA PO; +MIRA3350 PO
[2023-10-11] MEDS: KETOROLAC 60MG 2ML VIAL IM ONE (12:23)
[2023-10-11 12:43] VITALS: BP 150/60; TEMP 97.3; O2SAT 97
[2023-10-11] MEDS ORDERED: NAPR-837 PO (13:43)
== END 2023-10-11 14:00 | disposition home or self-care (01) ==
LOC: M ED 09:19
DX: M25.552 Pain in left hip (principal); E66.9 Obesity, unspecified; E11.9 Type 2 diabetes mellitus without complications; I10 Essential (primary) hypertension; E78.5 Hyperlipidemia, unspecified; J45.909 Unspecified asthma, uncomplicated; K21.9 Gastro-esophageal reflux disease without esophagitis; Z79.82 Long term (current) use of aspirin; Z79.899 Other long term (current) drug therapy; Z88.8 Allergy status to other drugs, medicaments and biological substances; Z91.89 Other specified personal risk factors, not elsewhere classified
CPT/HCPCS: 72131; 73502; 93971; 96372; 99283; J1885

== ENCOUNTER 2023-10-13 10:49 | Emergency (ER) | payer OTHER ==
[~2023-10-13] VITALS: Ht 177.8 cm; Wt 145.4 kg
[~2023-10-13 10:49] MED LIST changes: +NAPR-837 PO
[2023-10-13 12:07] VITALS: BP 136/92; TEMP 97.9; O2SAT 99
== END 2023-10-13 12:08 | disposition home or self-care (01) ==
LOC: M ED 10:49
DX: S76.012A Strain of muscle, fascia and tendon of left hip, initial encounter (principal); X58.XXXA Exposure to other specified factors, initial encounter; Y92.9 Unspecified place or not applicable; Y93.9 Activity, unspecified; Y99.9 Unspecified external cause status; E11.9 Type 2 diabetes mellitus without complications; I10 Essential (primary) hypertension; K21.9 Gastro-esophageal reflux disease without esophagitis; E78.00 Pure hypercholesterolemia, unspecified; J45.909 Unspecified asthma, uncomplicated; J44.9 Chronic obstructive pulmonary disease, unspecified; Z79.82 Long term (current) use of aspirin; Z79.4 Long term (current) use of insulin; Z79.899 Other long term (current) drug therapy; Z88.8 Allergy status to other drugs, medicaments and biological substances; Z91.89 Other specified personal risk factors, not elsewhere classified

== ENCOUNTER 2024-08-29 08:29 | Emergency (ER) | payer OTHER ==
[~2024-08-29] VITALS: Ht 177.8 cm; Wt 147.0 kg
[~2024-08-29 08:29] MED LIST changes: +GABA-1172 PO; -GABA-282 PO; +LISI40TA10 PO; -LISI40TA4 PO
[2024-08-29 08:43] VITALS: TEMP 97.7
[2024-08-29] MEDS ORDERED: VENTAER INH (08:52)
[2024-08-29 09:35] VITALS: BP 177/108
[2024-08-29] MEDS: METOPROLOL SUCC. 100 MG *XL* TAB PO ONE (09:35)
[2024-08-29] MEDS: LIDOCAINE VISCOUS 2% SOLN 15 ML UDC TOP ONE (10:27)
[2024-08-29] MEDS: LIDOCAINE W/EPINEPHrine 1% 20 ML VIAL SC ONE (10:27)
[2024-08-29] MEDS ORDERED: HOME MED LIST COMPLETE! XX SCH (10:55)
[2024-08-29 10:59] VITALS: O2SAT 96
[2024-08-29 11:06] VITALS: BP 180/116
== END 2024-08-29 11:13 | disposition home or self-care (01) ==
LOC: M ED 08:29
DX: K13.79 Other lesions of oral mucosa (principal); I10 Essential (primary) hypertension

== ENCOUNTER 2024-11-28 08:31 | Emergency (ER) | payer OTHER ==
[~2024-11-28] VITALS: Ht 180.3 cm; Wt 148.3 kg
[~2024-11-28 08:31] MED LIST changes: +VENTAER INH
[2024-11-28] MEDS ORDERED: KETO-204 PO (10:41)
[2024-11-28 10:56] VITALS: BP 181/118; TEMP 97.8; O2SAT 97
== END 2024-11-28 10:59 | disposition home or self-care (01) ==
LOC: M ED 08:31
DX: S46.212A Strain of muscle, fascia and tendon of other parts of biceps, left arm, initial encounter (principal); X50.0XXA Overexertion from strenuous movement or load, initial encounter; Y92.9 Unspecified place or not applicable; Y93.9 Activity, unspecified; Y99.9 Unspecified external cause status; E11.9 Type 2 diabetes mellitus without complications; I10 Essential (primary) hypertension; E78.5 Hyperlipidemia, unspecified; Z79.899 Other long term (current) drug therapy; Z88.1 Allergy status to other antibiotic agents; Z91.89 Other specified personal risk factors, not elsewhere classified

== ENCOUNTER 2025-01-23 16:41 | Emergency (ER) | payer OTHER ==
[~2025-01-23] VITALS: Ht 180.3 cm; Wt 142.4 kg
[~2025-01-23 16:41] MED LIST changes: +KETO-204 PO
[2025-01-23 16:46] VITALS: TEMP 98.4
[2025-01-23] MEDS ORDERED: KETO-204 PO (19:00)
[2025-01-23] MEDS: KETOROLAC TROMETHAMINE 10 MG TAB PO ONE (19:42)
[2025-01-23 19:45] VITALS: BP 154/99; O2SAT 97
== END 2025-01-23 19:50 | disposition home or self-care (01) ==
LOC: M ED 16:41
DX: S46.012A Strain of muscle(s) and tendon(s) of the rotator cuff of left shoulder, initial encounter (principal); X58.XXXA Exposure to other specified factors, initial encounter; Y92.9 Unspecified place or not applicable; Y93.9 Activity, unspecified; Y99.9 Unspecified external cause status; Z86.73 Personal history of transient ischemic attack (TIA), and cerebral infarction without residual deficits; I10 Essential (primary) hypertension; E78.00 Pure hypercholesterolemia, unspecified; J45.909 Unspecified asthma, uncomplicated; Z87.01 Personal history of pneumonia (recurrent); Z87.09 Personal history of other diseases of the respiratory system; K21.9 Gastro-esophageal reflux disease without esophagitis; E11.9 Type 2 diabetes mellitus without complications; Z79.84 Long term (current) use of oral hypoglycemic drugs; Z79.899 Other long term (current) drug therapy; Z88.1 Allergy status to other antibiotic agents; Z91.89 Other specified personal risk factors, not elsewhere classified